=== PATIENT | female | born 2000 | race American Indian/Alaskan Native ===

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

== ENCOUNTER 2022-02-27 14:06 | Inpatient (IN) | payer MEDICAID ==
[2022-02-27] MEDS ORDERED: LACTATED RINGERS 1,000 ML ONE (17:19)
[2022-02-27] MEDS ORDERED: ONDANSETRON 4 MG/2 ML INJ ONE (17:24)
[2022-02-27] MEDS ORDERED: FAMOTIDINE 20 MG/2 ML INJ IV ONE ×2 (17:44→23:00)
[2022-02-27] MEDS ORDERED: LACTATED RINGERS 500 ML IV ONE (17:46)
[2022-02-27 18:17] LABS: Bilirubin,Urine NEG (Negative); Blood,Urine SM (Negative); Color,Urine Yellow (Yellow)
[2022-02-27 18:17] LABS: Hematocrit 38.8 % (30.3-42.9); Hemoglobin 12.4 gm/dl (10.1-14.3); Mean Corpuscular HGB Conc 32 % (30-34); Mean Corpuscular Volume 91 fl (79-97); Platelet Count 229 K/mm3 (140-440); Red Blood Count 4.26 M/mm3 (3.65-5.03); Red Cell Distribution Width 13.9 % (13.2-15.2)
[2022-02-27 18:19] LABS: Mucus,Urine FEW /HPF
[2022-02-27 18:40] LABS: Alanine Aminotransferase 121 units/L (7-56); Albumin 3.5 g/dL (3.9-5); Blood Urea Nitrogen 8 mg/dL (7-17); Calcium 9.9 mg/dL (8.4-10.2); Hemolysis Index 29
[2022-02-27 18:56] LABS: BUN/Creatinine Ratio 13
[2022-02-27] MEDS ORDERED: ACETAMINOPHEN 325 MG TAB PO PRN (19:54)
[2022-02-27] MEDS ORDERED: DOCUSATE SODIUM 100 MG CAP PO PRN (19:54)
[2022-02-27] MEDS ORDERED: LACTATED RINGERS 1,000 ML IV SCH (20:00)
[2022-02-27] MEDS ORDERED: DEXTROSE 50% IN WATER (25GM) 50 ML SYRINGE IV PRN (20:03)
[2022-02-28] MEDS: INSULIN REGULAR, HUMAN 100 UNITS/1 ML SUB-Q PRN ×4 (00:06→14:26)
[2022-02-28] MEDS: METOCLOPRAMIDE 10 MG/2 ML INJ IV SCH ×2 (04:13→21:17)
[2022-02-28] MEDS: ONDANSETRON 4 MG/2 ML INJ IV PRN (06:03)
--- NOTE | 2022-02-28 08:51 | History and Physical Report ---
History of Present Illness Date of examination: 02/28/22 Date of admission: 02/27/22 19:55 Chief complaint: nausea and vomiting History of present illness: Pt is a 22 year old -Cym[place] female MAXX 04/26/22 at 31w6d who presents with complaint of nausea and vomiting daily for the past two weeks. She presented to triage for the same complaint last week. She has tried taking Tums but she has not noticed any improvement since taking them. She has had care at [facility] since transfer into care at 11 wks with comanagement by [facility] complicated by pregesetational diabetes on Metformin 500 mg BID, Asthma, Polyhydramnios, Obesity, Chlamydia treated with negative test of cure. She is GBS positive. 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: chlamydia (treated with negative test of cure), herpes (type 1) Family/Genetic History: none Social history: no significant social history - Obstetrical History Expected Date of Delivery: 04/26/22 Actual Gestation: 31 Week(s) 6 Day(s) : 2 Para: 0 Hx # Term Pregnancies: 0 Number of Pregnancies: 0 Spontaneous Abortions: 1 Induced : 0 Number of Living Children: 0 Medications and Allergies Allergies Allergy/AdvReac Type Severity Reaction Status Date / Time No Known Allergies Allergy Unverified 12/08/19 10:14 Home Medications Medication Instructions Recorded Confirmed Last Taken Type Ibuprofen [Motrin] 600 mg PO Q8H PRN #20 tablet 12/08/19 Unknown Rx Active Meds: Active Medications Acetaminophen (Acetaminophen 325 Mg Tab) 650 mg PO Q4H PRN PRN Reason: Pain MILD(1-3)/Fever >100.5/MALIK Last Admin: 02/27/22 23:52 Dose: 650 mg Dextrose (Dextrose 50% In Water (25gm) 50 Ml Syringe) 50 ml IV Q30MIN PRN; Protocol PRN Reason: Hypoglycemia Docusate Sodium (Docusate Sodium 100 Mg Cap) 100 mg PO Q12H PRN PRN Reason: Constipation Lactated Ringer's (Lactated Ringers) 1,000 mls @ 125 mls/hr IV DIRECT VELVET Insulin Human Regular (Insulin Regular, Human 100 Units/1 Ml) 0 units SUB-Q Q6H PRN; Protocol PRN Reason: Hyperglycemia Last Admin: 02/28/22 06:19 Dose: 2 units Metoclopramide HCl (Metoclopramide 10 Mg/2 Ml Inj) 10 mg IV Q6H [facility] Last Admin: 02/28/22 04:13 Dose: Not Given Multivitamins/Iron/Calcium ( Kcm98-[id number] Fumarate-Folic Acid Vit Tab) 1 each PO QDAY [facility] Ondansetron HCl (Ondansetron 4 Mg/2 Ml Inj) 4 mg IV Q6H PRN PRN Reason: N/V unrelieved by Prashanth Last Admin: 02/28/22 06:03 Dose: 4 mg Review of Systems All systems: negative - Vital Signs Vital signs: Vital Signs Temp Resp Pulse Ox 98.3 F 16 100 02/27/22 16:34 02/27/22 16:34 02/27/22 16:34 Temp Pulse Resp BP Pulse Ox 97.5 F L 91 H 16 128/60 0 L 02/28/22 04:51 02/28/22 08:48 02/28/22 04:51 02/28/22 08:48 02/28/22 08:43 - Physical Exam Abdomen: Positive: soft (obese, gravid ) Uterus: Positive: enlarged (gravid ) Extremities: Positive: edema (trace) - Obstetrical FHR: auscultation normal Uterine Contraction Monitor Mode: External Uterine Contraction Pattern: Absent Uterine Tone Measurement Phase: Resting Results Result Diagrams: 02/27/22 Unknown 02/27/22 Unknown Abnormal lab results 02/27/22 02/27/22 02/28/22 Range/Units 23:50 Unknown 06:13 Sodium 133 L (137-145) mmol/L Potassium 5.1 H (3.6-5.0) mmol/L Carbon Dioxide 13 L (22-30) mmol/L Glucose 193 H (65-100) mg/dL POC Glucose 214 H 200 H (70-105) mg/dL AST 100 H (5-40) units/L ALT 121 H (7-56) units/L Albumin 3.5 L (3.9-5) g/dL All other labs normal. Assessment and Plan A: IUP at 31w6d Nausea and Vomiting Pregesetational diabetes on Metformin 500 mg BID Asthma Polyhydramnios Obesity Chlamydia treated with negative test of cure GBS positive P: Admit to antepartum service for observation IV hydration IV antiemetics Glucose monitoring Advance diet as tolerated
[2022-02-28] MEDS ORDERED: PRENATAL VIT27-FE FUMARATE-FOLIC ACID VIT TAB PO SCH ×2 (10:00)
--- NOTE | 2022-02-28 22:10 | Event Note ---
Date: 02/28/22 Pt nausea improved with IV Zofran. No emesis of Pt's blood sugar is elevated, but pt reports that she drank juice before accuchek. Continue to advance diet, restart Metformin, sliding scale PRN. BPP ordered but not yet performed. Pt desires discharge early tomorrow morning if possible.
[2022-03-01] MEDS: INSULIN REGULAR, HUMAN 100 UNITS/1 ML SUB-Q PRN ×4 (00:33→17:42)
--- NOTE | 2022-03-01 01:46 | Ultrasound Report ---
US OB BPP wo non-stress INDICATION / CLINICAL INFORMATION: well being COMPARISON: None available. TECHNIQUE: Using a transcutaneous probe, multiple grayscale, color Doppler, and spectral Doppler imag es of the fetus and uterus are captured in store for purposes of biophysical profile. FINDINGS: Clinical estimate gestational age based on LMP of 07/20/2021 is 31 weeks 6 days. heart rate is 157 bpm. Largest pocket of amniotic fluid measures 7.3 cm. BREATHING MOVEMENT = 2 GROSS BODY MOVEMENT = 2 TONE = 2 QUALITATIVE AMNIOTIC FLUID VOLUME = 2 TOTAL BIOPHYSICAL SCORE = 8/8 IMPRESSION: 1. Normal biophysical profile score of 8/8. Signer Name: Kalyan Martinez II, MD Signed: 03/01/2022 1:41 AM Workstation Name: [id number]
[2022-03-01] MEDS: METOCLOPRAMIDE 10 MG/2 ML INJ IV SCH ×3 (02:05→20:49)
--- NOTE | 2022-03-01 07:30 | Progress Note ---
Assessment and Plan A: IUP at 32w0d Nausea and Vomiting- no emesis overnight Pregesetational diabetes on Metformin 500 mg BID Asthma Polyhydramnios Obesity Chlamydia treated with negative test of cure GBS positive P: Admit to antepartum service for observation IV hydration IV antiemetics Glucose monitoring Subjective - Subjective Date of service: 03/01/22 Principal diagnosis: IUP at 32w0d, Pregestational DM, Obesity Interval history: Overnight BPP 03/20 last night. She did not receive evening Metformin dose. Glucose elevated this morning. Patient reports: new complaints, movement normal, no loss of fluid, no vaginal bleeding, no contractions Objective - Vital Signs Vital Signs: Vital Signs - 12hr 02/28/22 02/28/22 02/28/22 19:33 19:37 19:38 Temperature Pulse Rate 116 H 94 H Blood Pressure O2 Sat by Pulse 93 96 Oximetry O2 Sat by Pulse 96 Oximetry [ Bilateral Throughout] 02/28/22 02/28/22 02/28/22 19:43 19:44 19:45 Temperature 97.7 F Pulse Rate 92 H 98 H Blood Pressure 123/67 O2 Sat by Pulse 96 90 Oximetry O2 Sat by Pulse Oximetry [ Bilateral Throughout] 02/28/22 02/28/22 02/28/22 19:48 19:53 19:58 Temperature Pulse Rate 102 H 99 H 90 Blood Pressure O2 Sat by Pulse 96 100 94 Oximetry O2 Sat by Pulse Oximetry [ Bilateral Throughout] 02/28/22 02/28/22 02/28/22 20:03 20:06 20:08 Temperature Pulse Rate 99 H 101 H 99 H Blood Pressure O2 Sat by Pulse 96 94 96 Oximetry O2 Sat by Pulse Oximetry [ Bilateral Throughout] 02/28/22 02/28/22 02/28/22 20:13 20:14 20:18 Temperature Pulse Rate 98 H 100 H 93 H Blood Pressure O2 Sat by Pulse 96 94 97 Oximetry O2 Sat by Pulse Oximetry [ Bilateral Throughout] 02/28/22 02/28/22 02/28/22 20:23 20:28 20:33 Temperature Pulse Rate 98 H 102 H 107 H Blood Pressure O2 Sat by Pulse 97 98 98 Oximetry O2 Sat by Pulse Oximetry [ Bilateral Throughout] 02/28/22 02/28/22 02/28/22 20:38 20:43 20:45 Temperature Pulse Rate 103 H 96 H 93 H Blood Pressure O2 Sat by Pulse 99 98 92 Oximetry O2 Sat by Pulse Oximetry [ Bilateral Throughout] 02/28/22 02/28/22 03/01/22 20:48 20:53 00:35 Temperature 98.2 F Pulse Rate 93 H 96 H Blood Pressure O2 Sat by Pulse 96 99 Oximetry O2 Sat by Pulse Oximetry [ Bilateral Throughout] 03/01/22 03/01/22 03/01/22 00:54 00:59 01:04 Temperature Pulse Rate 93 H 88 104 H Blood Pressure O2 Sat by Pulse 99 99 99 Oximetry O2 Sat by Pulse Oximetry [ Bilateral Throughout] 03/01/22 03/01/22 03/01/22 01:09 01:14 01:19 Temperature Pulse Rate 101 H 102 H 95 H Blood Pressure O2 Sat by Pulse 99 99 99 Oximetry O2 Sat by Pulse Oximetry [ Bilateral Throughout] 03/01/22 03/01/22 03/01/22 01:24 01:29 01:37 Temperature Pulse Rate 109 H 108 H 117 H Blood Pressure O2 Sat by Pulse 99 99 95 Oximetry O2 Sat by Pulse Oximetry [ Bilateral Throughout] 03/01/22 03/01/22 03/01/22 01:42 01:47 01:52 Temperature Pulse Rate 99 H 102 H 100 H Blood Pressure O2 Sat by Pulse 98 98 98 Oximetry O2 Sat by Pulse Oximetry [ Bilateral Throughout] 03/01/22 03/01/22 03/01/22 01:57 02:02 02:07 Temperature Pulse Rate 96 H 99 H 106 H Blood Pressure O2 Sat by Pulse 98 98 99 Oximetry O2 Sat by Pulse Oximetry [ Bilateral Throughout] 03/01/22 03/01/22 03/01/22 02:12 02:20 02:25 Temperature Pulse Rate 117 H 107 H 97 H Blood Pressure O2 Sat by Pulse 98 98 98 Oximetry O2 Sat by Pulse Oximetry [ Bilateral Throughout] 03/01/22 03/01/22 03/01/22 02:30 02:35 02:40 Temperature Pulse Rate 100 H 97 H 98 H Blood Pressure O2 Sat by Pulse 98 98 98 Oximetry O2 Sat by Pulse Oximetry [ Bilateral Throughout] 03/01/22 03/01/22 03/01/22 02:45 02:50 02:55 Temperature Pulse Rate 101 H 106 H 96 H Blood Pressure O2 Sat by Pulse 98 98 99 Oximetry O2 Sat by Pulse Oximetry [ Bilateral Throughout] 03/01/22 03/01/22 03/01/22 03:00 03:05 03:10 Temperature Pulse Rate 94 H 99 H 103 H Blood Pressure O2 Sat by Pulse 99 99 99 Oximetry O2 Sat by Pulse Oximetry [ Bilateral Throughout] 03/01/22 03/01/22 03/01/22 03:15 03:20 03:25 Temperature Pulse Rate 97 H 97 H 95 H Blood Pressure O2 Sat by Pulse 99 99 99 Oximetry O2 Sat by Pulse Oximetry [ Bilateral Throughout] 03/01/22 03/01/22 03/01/22 03:30 03:35 03:40 Temperature Pulse Rate 98 H 105 H 108 H Blood Pressure O2 Sat by Pulse 99 99 99 Oximetry O2 Sat by Pulse Oximetry [ Bilateral Throughout] 03/01/22 03/01/22 03/01/22 03:45 03:50 03:55 Temperature Pulse Rate 107 H 99 H 107 H Blood Pressure O2 Sat by Pulse 98 99 99 Oximetry O2 Sat by Pulse Oximetry [ Bilateral Throughout] 03/01/22 03/01/22 03/01/22 04:00 04:05 04:10 Temperature Pulse Rate 102 H 102 H 100 H Blood Pressure O2 Sat by Pulse 99 98 98 Oximetry O2 Sat by Pulse Oximetry [ Bilateral Throughout] 03/01/22 03/01/22 03/01/22 04:15 04:20 04:25 Temperature Pulse Rate 92 H 89 91 H Blood Pressure O2 Sat by Pulse 98 98 98 Oximetry O2 Sat by Pulse Oximetry [ Bilateral Throughout] 03/01/22 03/01/22 03/01/22 04:30 04:35 04:40 Temperature Pulse Rate 93 H 93 H 95 H Blood Pressure O2 Sat by Pulse 98 98 98 Oximetry O2 Sat by Pulse Oximetry [ Bilateral Throughout] 03/01/22 03/01/22 03/01/22 04:45 04:50 04:55 Temperature Pulse Rate 94 H 92 H 90 Blood Pressure O2 Sat by Pulse 98 97 98 Oximetry O2 Sat by Pulse Oximetry [ Bilateral Throughout] 03/01/22 03/01/22 03/01/22 05:00 05:05 05:10 Temperature Pulse Rate 100 H 91 H 100 H Blood Pressure O2 Sat by Pulse 97 98 97 Oximetry O2 Sat by Pulse Oximetry [ Bilateral Throughout] 0703/01/22 03/01/22 05:15 05:20 05:25 Temperature Pulse Rate 95 H 98 H 105 H Blood Pressure O2 Sat by Pulse 96 98 98 Oximetry O2 Sat by Pulse Oximetry [ Bilateral Throughout] 03/01/22 03/01/22 03/01/22 05:33 05:38 05:43 Temperature Pulse Rate 117 H 111 H 102 H Blood Pressure O2 Sat by Pulse 99 97 98 Oximetry O2 Sat by Pulse Oximetry [ Bilateral Throughout] 03/01/22 03/01/22 03/01/22 05:48 05:53 05:58 Temperature Pulse Rate 99 H 99 H 102 H Blood Pressure O2 Sat by Pulse 98 98 98 Oximetry O2 Sat by Pulse Oximetry [ Bilateral Throughout] 03/01/22 03/01/22 03/01/22 06:03 06:08 06:13 Temperature Pulse Rate 100 H 118 H 112 H Blood Pressure 107/76 O2 Sat by Pulse 98 98 98 Oximetry O2 Sat by Pulse Oximetry [ Bilateral Throughout] 03/01/22 03/01/22 03/01/22 06:18 06:23 06:28 Temperature Pulse Rate 99 H 113 H 95 H Blood Pressure O2 Sat by Pulse 100 99 98 Oximetry O2 Sat by Pulse Oximetry [ Bilateral Throughout] 03/01/22 03/01/22 03/01/22 06:33 06:44 06:49 Temperature Pulse Rate 95 H 110 H 87 Blood Pressure O2 Sat by Pulse 97 100 99 Oximetry O2 Sat by Pulse Oximetry [ Bilateral Throughout] 03/01/22 03/01/22 03/01/22 06:54 06:59 07:04 Temperature Pulse Rate 111 H 96 H 89 Blood Pressure O2 Sat by Pulse 100 100 99 Oximetry O2 Sat by Pulse Oximetry [ Bilateral Throughout] 03/01/22 03/01/22 03/01/22 07:09 07:14 07:19 Temperature Pulse Rate 90 93 H 103 H Blood Pressure O2 Sat by Pulse 98 99 100 Oximetry O2 Sat by Pulse Oximetry [ Bilateral Throughout] 03/01/22 07:24 Temperature Pulse Rate 95 H Blood Pressure O2 Sat by Pulse 99 Oximetry O2 Sat by Pulse Oximetry [ Bilateral Throughout] - Exam Breasts: deferred Abdomen: Present: soft (gravid, obese) Uterus: Present: normal (gravid ) FHR: auscultation normal Uterine Contraction Monitor Mode: External Uterine Tone Measurement Phase: Resting Extremities: normal - Labs Labs: Abnormal Labs 02/27/22 02/27/22 02/28/22 23:50 Unknown 06:13 Sodium 133 L Potassium 5.1 H Carbon Dioxide 13 L Glucose 193 H POC Glucose 214 H 200 H AST 100 H ALT 121 H Albumin 3.5 L 02/28/22 02/28/22 02/28/22 13:34 16:20 18:19 Sodium Potassium Carbon Dioxide Glucose POC Glucose 224 H 163 H 161 H AST ALT Albumin 02/28/22 03/01/22 23:49 06:10 Sodium Potassium Carbon Dioxide Glucose POC Glucose 168 H 193 H AST ALT Albumin Laboratory Results - last 24 hr 02/28/22 02/28/22 02/28/22 13:34 16:20 18:19 POC Glucose 224 H 163 H 161 H 02/28/22 03/01/22 23:49 06:10 POC Glucose 168 H 193 H
[2022-03-01] MEDS: metFORMIN 500 MG TAB PO SCH ×2 (09:20→17:46)
[2022-03-01] MEDS: ONDANSETRON 4 MG/2 ML INJ IV PRN (10:44)
[2022-03-02] MEDS: METOCLOPRAMIDE 10 MG/2 ML INJ IV SCH (04:05)
[2022-03-02] MEDS: ONDANSETRON 4 MG/2 ML INJ IV PRN (06:27)
[2022-03-02 11:21] VITALS: BP 128/77
[2022-03-02] MEDS: metFORMIN 500 MG TAB PO SCH (11:59)
== END 2022-03-02 12:50 | disposition home or self-care (01) | DRG 781 ==
LOC: APU 14:06 → TRG 14:06 → OBSVTOIN 19:55 → LD 19:55
PROVIDERS: ADMIT Obstetrics & Gynecology; ATTEND Obstetrics & Gynecology
DX: O24.113 Pre-existing type 2 diabetes mellitus, in pregnancy, third trimester (principal); O99.820 Streptococcus B carrier state complicating pregnancy; O99.513 Diseases of the respiratory system complicating pregnancy, third trimester; O40.3XX0 Polyhydramnios, third trimester, not applicable or unspecified; O99.213 Obesity complicating pregnancy, third trimester; Z3A.31 31 weeks gestation of pregnancy
CPT/HCPCS: 36415; 59025; 76819; 80053; 81001; 82150; 82962; 83690; 85027; G0378; J3490; Q9967; J1815; J2405; J2765

== ENCOUNTER 2022-03-04 15:27 | Outpatient (CLI) | payer MEDICAID ==
[2022-03-04] MEDS ORDERED: LACTATED RINGERS 500 ML IV ONE (18:15)
[2022-03-04 18:43] VITALS: BP 136/96
== END 2022-03-04 19:32 | disposition home or self-care (01) ==
LOC: TRG 15:27 → APU 15:27 → TRG 19:32
PROVIDERS: ATTEND Obstetrics & Gynecology
DX: O21.2 Late vomiting of pregnancy (principal); O99.613 Diseases of the digestive system complicating pregnancy, third trimester; K59.00 Constipation, unspecified; O99.513 Diseases of the respiratory system complicating pregnancy, third trimester; J45.909 Unspecified asthma, uncomplicated; O24.419 Gestational diabetes mellitus in pregnancy, unspecified control; Z3A.32 32 weeks gestation of pregnancy
CPT/HCPCS: 59025

== ENCOUNTER 2022-03-12 16:52 | Inpatient (IN) | payer MEDICAID ==
[2022-03-12] MEDS ORDERED: LACTATED RINGERS 500 ML IV ONE (17:39)
[2022-03-12 18:27] LABS: Hematocrit 36.1 % (30.3-42.9); Hemoglobin 11.6 gm/dl (10.1-14.3); Mean Corpuscular HGB Conc 32 % (30-34); Mean Corpuscular Volume 90 fl (79-97); Platelet Count 122 K/mm3 (140-440); Red Blood Count 4.01 M/mm3 (3.65-5.03); Red Cell Distribution Width 13.9 % (13.2-15.2)
[2022-03-12 18:36] LABS: Mucus,Urine FEW /HPF
[2022-03-12 18:46] LABS: Alanine Aminotransferase 106 units/L (7-56); Uric Acid 7.3 mg/dL (3.5-7.6)
[2022-03-12 19:11] LABS: Bilirubin,Urine Negative (Negative); Blood,Urine Trace (Negative); Color,Urine Yellow (Yellow); Urobilinogen,Urine < 2.0 mg/dL (<2.0)
[2022-03-13] MEDS ORDERED: BUTORPHANOL 2 MG/1 ML INJ IV PRN ×2 (00:22)
[2022-03-13] MEDS ORDERED: fentaNYL 100 MCG/2 ML INJ IV PRN (00:22)
[2022-03-13] MEDS ORDERED: LACTATED RINGERS 1,000 ML IV SCH (00:30)
[2022-03-13] MEDS: BETAMET ACET/BETAMET NA PH 6 MG/ML INJ 5 ML MDV IM SCH (00:40)
[2022-03-13 00:58] LABS: Hematocrit 34.7 % (30.3-42.9); Hemoglobin 11.3 gm/dl (10.1-14.3); Mean Corpuscular HGB Conc 33 % (30-34); Mean Corpuscular Volume 89 fl (79-97); Platelet Count 119 K/mm3 (140-440); Red Blood Count 3.89 M/mm3 (3.65-5.03); Red Cell Distribution Width 14.1 % (13.2-15.2)
[2022-03-13] MEDS: ACETAMINOPHEN 325 MG TAB PO PRN (02:36)
[2022-03-13 05:14] LABS: Hematocrit 34.8 % (30.3-42.9); Hemoglobin 10.8 gm/dl (10.1-14.3); Mean Corpuscular HGB Conc 31 % (30-34); Mean Corpuscular Volume 90 fl (79-97); Platelet Count 111 K/mm3 (140-440); Red Blood Count 3.85 M/mm3 (3.65-5.03); Red Cell Distribution Width 13.8 % (13.2-15.2)
[2022-03-13 05:32] LABS: Alanine Aminotransferase 86 units/L (7-56); Albumin 2.6 g/dL (3.9-5); BUN/Creatinine Ratio 18; Blood Urea Nitrogen 16 mg/dL (7-17); Calcium 9.1 mg/dL (8.4-10.2); Hemolysis Index 22
[2022-03-13] MEDS ORDERED: DEXTROSE 50% IN WATER (25GM) 50 ML SYRINGE IV PRN (10:00)
--- NOTE | 2022-03-13 10:56 | Vascular Lab Report ---
DUPLEX DOPPLER LOWER EXTREMITY VEINS, RIGHT INDICATION / CLINICAL INFORMATION: right lower extremity edema. TECHNIQUE: Duplex doppler imaging was performed through the veins of the right lower extremity using venous comp ression and other maneuvers. COMPARISON: None available. FINDINGS: RIGHT COMMON FEMORAL VEIN: Negative. RIGHT FEMORAL VEIN: Negative. RIGHT POPLITEAL VEIN: Negative. RIGHT CALF VEINS: Negative. ADDITIONAL FINDINGS: None. IMPRESSION: 1. No sonographic evidence for DVT in the right lower extremity. Signer Name: Christian Ramirez MD Signed: 03/13/2022 10:51 AM Workstation Name: [id number]
--- NOTE | 2022-03-13 13:09 | Ultrasound Report ---
ULTRASOUND BIOPHYSICAL PROFILE INDICATION / CLINICAL INFORMATION: decreased movement. COMPARISON: 02/28/2022 FINDINGS: Single live intrauterine . MEASUREMENTS: - Biparietal Diameter = 8.7 cm = 35 weeks 0 days - Head Circumference = 30.6 cm = 34 weeks 1 day - Abdominal Circumference = 34.8 cm = 38 weeks 5 days - Femur Length = 6.6 cm = 33 weeks 4 days - Estimated Weight (in grams, if calculated): 2981 -Estimated ultrasound gestational age: 34 weeks 2 days -Clinical gestational age: 33 weeks 5 days. BREATHING MOVEMENT = 2 GROSS BODY MOVEMENT = 2 TONE = 2 QUALITATIVE AMNIOTIC FLUID VOLUME = 2 TOTAL BIOPHYSICAL SCORE = 8/8 AMNIOTIC FLUID INDEX (cm) = 37.5 PRESENTATION: Cephalic. HEART RATE (beats per minute): 150-162 Additional findings: Anterior placenta is free of the os. No significant abnormality. IMPRESSION: 1. Single live intrauterine with ultrasound age of 34 weeks and 2 days. 2. biophysical profile = 8/8 3. Increased amniotic fluid volume with amniotic fluid index measuring 37.5 cm. Signer Name: Tien Berger MD Signed: 03/13/2022 1:05 PM Workstation Name: [id number]
--- NOTE | 2022-03-13 14:32 | History and Physical Report ---
History of Present Illness Date of examination: 03/13/22 Date of admission: 03/12/22 22:53 Chief complaint: my legs are swollen History of present illness: Pt is a 22 year old -[place] female who initially presented secondary to leg swelling, right greater than left. She was noted to have two BPs with systolics greater than 140 since admission. She collected a 24 hour urine at home, and returned it today. She reports decreased movement and irregular contractions, but denies vaginal bleeding or leakage of fluid. She has had care at [facility] with comanagement by [facility] since transfer into care at 11 wks complicated by pregestational diabetes previously on Metformin 500 mg BID, asthma, polyhydramnios, chlamydia treated with negative test of cure, obesity, and GBS positive status. She received one dose of betamethasone for lung maturity since admission. PIH panel was ordered in the office on 03/07/22: H/H 12.3/38.1, Plt 180,000;Glucose 287; AST/ALT 72/145. The patient was called at that time, but call unanswered, and unable to leave a voicemail. Past History Past Medical History: asthma, diabetes Past Surgical History: D&C [employer] History: chlamydia (treated with negative test of cure ), other (h/o ovarian cyst) Family/Genetic History: none Social history: no significant social history - Obstetrical History Expected Date of Delivery: 04/26/22 Actual Gestation: 33 Week(s) 5 Day(s) : 2 Para: 0 Hx # Term Pregnancies: 0 Number of Pregnancies: 0 Spontaneous Abortions: 1 Induced : 0 Number of Living Children: 0 Medications and Allergies Allergies Allergy/AdvReac Type Severity Reaction Status Date / Time No Known Allergies Allergy Unverified 03/04/22 18:02 Home Medications Medication Instructions Recorded Confirmed Last Taken Type Ibuprofen [Motrin] 600 mg PO Q8H PRN #20 tablet 12/08/19 Unknown Rx Metoclopramide [Reglan] 10 mg PO TID PRN #90 tab 03/01/22 Unknown Rx Ondansetron [Zofran ODT TAB] 8 mg PO Q12HR PRN #30 tab.rapdis 03/01/22 Unknown Rx Lactulose [Cephulac] 20 gm PO BID PRN #473 ml 03/04/22 Unknown Rx Active Meds: Active Medications Acetaminophen (Acetaminophen 325 Mg Tab) 650 mg PO Q4H PRN PRN Reason: Pain, Mild (1-3) Last Admin: 03/13/22 02:36 Dose: 650 mg Betamethasone Acet/Betameth SodPhos (Betamet Acet/Betamet Na Ph 6 Mg/Ml Inj 5 Ml Mdv) 12 mg IM Q24H [facility] Stop: 03/14/22 00:16 Last Admin: 03/13/22 00:40 Dose: 12 mg Butorphanol Tartrate (Butorphanol 2 Mg/1 Ml Inj) 1 mg IV Q2H PRN PRN Reason: Pain, Moderate(4-6) LABOR PAIN Butorphanol Tartrate (Butorphanol 2 Mg/1 Ml Inj) 2 mg IV Q2H PRN PRN Reason: Pain , Severe (7-10) Dextrose (Dextrose 50% In Water (25gm) 50 Ml Syringe) 50 ml IV Q30MIN PRN; Protocol PRN Reason: Hypoglycemia Fentanyl (Fentanyl 100 Mcg/2 Ml Inj) 100 mcg IV Q2H PRN PRN Reason: Pain,Severe (7-10) LABOR PAIN Lactated Ringer's (Lactated Ringers) 1,000 mls @ 125 mls/hr IV DIRECT VELVET Insulin Human NPH (Insulin Nph, Human 100 Unit/1 Ml) 39 unit SUB-Q QDDIAB [facility] Insulin Human NPH (Insulin Nph, Human 100 Unit/1 Ml) 14 unit SUB-Q QPMDIAB [facility] Insulin Human Regular (Insulin Regular, Human 100 Units/1 Ml) 19 units SUB-Q QDDIAB [facility] Insulin Human Regular (Insulin Regular, Human 100 Units/1 Ml) 14 units SUB-Q QPMDIAB [facility] Insulin Human Regular (Insulin Regular, Human 100 Units/1 Ml) 0 units SUB-Q Q6H PRN; Protocol PRN Reason: Hyperglycemia Review of Systems All systems: negative - Vital Signs Vital signs: Vital Signs Pulse Pulse Ox 107 H 98 03/12/22 17:21 03/12/22 17:21 Temp Pulse Resp BP Pulse Ox 97.6 F 76 18 116/66 61 L 03/13/22 07:50 03/13/22 14:24 03/13/22 07:50 03/13/22 14:24 03/13/22 14:21 - Physical Exam Breasts: Positive: deferred Abdomen: Positive: soft (gravid (S>D)) Uterus: Positive: enlarged Extremities: Positive: edema. Negative: tenderness - Obstetrical FHR: auscultation normal Uterine Contraction Monitor Mode: External Uterine Contraction Pattern: Irregular Uterine Tone Measurement Phase: Resting Uterine Contraction Intensity: Mild Results Result Diagrams: 03/13/22 04:23 03/13/22 04:23 Abnormal lab results 03/12/22 03/12/22 03/12/22 Range/Units 17:50 17:50 17:50 WBC 3.6 L (4.5-11.0) K/mm3 Plt Count 122 L (140-440) K/mm3 Sodium (137-145) mmol/L Potassium (3.6-5.0) mmol/L Chloride (98-107) mmol/L Carbon Dioxide (22-30) mmol/L Glucose (65-100) mg/dL AST 73 H (5-40) units/L ALT 106 H (7-56) units/L Lactate Dehydrogenase 201 H (91-180) units/L Total Protein (6.3-8.2) g/dL Albumin (3.9-5) g/dL Urine WBC (Auto) 7.0 H (0.0-6.0) /HPF SARS-CoV-2 (PCR) (Negative) 03/13/22 03/13/22 03/13/22 Range/Units 00:00 04:23 04:23 WBC 3.7 L 4.1 L (4.5-11.0) K/mm3 Plt Count 119 L 111 L (140-440) K/mm3 Sodium 129 L (137-145) mmol/L Potassium 5.1 H (3.6-5.0) mmol/L Chloride 93.3 L (98-107) mmol/L Carbon Dioxide 14 L (22-30) mmol/L Glucose 373 H (65-100) mg/dL AST 59 H (5-40) units/L ALT 86 H (7-56) units/L Lactate Dehydrogenase (91-180) units/L Total Protein 5.9 L (6.3-8.2) g/dL Albumin 2.6 L (3.9-5) g/dL Urine WBC (Auto) (0.0-6.0) /HPF SARS-CoV-2 (PCR) (Negative) 03/13/22 Range/Units 13:00 WBC (4.5-11.0) K/mm3 Plt Count (140-440) K/mm3 Sodium (137-145) mmol/L Potassium (3.6-5.0) mmol/L Chloride (98-107) mmol/L Carbon Dioxide (22-30) mmol/L Glucose (65-100) mg/dL AST (5-40) units/L ALT (7-56) units/L Lactate Dehydrogenase (91-180) units/L Total Protein (6.3-8.2) g/dL Albumin (3.9-5) g/dL Urine WBC (Auto) (0.0-6.0) /HPF SARS-CoV-2 (PCR) Positive A (Negative) All other labs normal. Assessment and Plan A: IUP at 33w2d s/p one dose of betamethasone since arrival Borderline BPs Thrombocytopenia Multiple Electrolyte Abnormalities Decreased Movement Lower Extremity Edema; right greater then left Pregestational Diabetes, poorly controlled on Metformin Polyhydramnios Obesity Asthma Chlamydia treated with negative test of cure GBS Positive P: Admit to antepartum service BPP, JOSEPH Complete betamethasone series Right Lower extremity doppler study Initiate scheduled insulin. Discontinue Metformin MFM consult
[2022-03-13] MEDS: INSULIN REGULAR, HUMAN 100 UNITS/1 ML SUB-Q SCH ×2 (15:53→20:58)
[2022-03-14] MEDS: BETAMET ACET/BETAMET NA PH 6 MG/ML INJ 5 ML MDV IM SCH (00:40)
[2022-03-14] MEDS: INSULIN REGULAR, HUMAN 100 UNITS/1 ML SUB-Q PRN ×4 (06:50→20:05)
[2022-03-14] MEDS: INSULIN NPH, HUMAN 100 UNIT/1 ML SUB-Q SCH ×3 (08:22→23:04)
[2022-03-14] MEDS: INSULIN REGULAR, HUMAN 100 UNITS/1 ML SUB-Q SCH ×2 (08:23→22:58)
--- NOTE | 2022-03-14 08:49 | Progress Note ---
Assessment and Plan A: IUP at 33w6d s/p two doses of betamethasone since arrival Borderline BPs Thrombocytopenia Multiple Electrolyte Abnormalities Lower Extremity Edema; right greater then left; doppler study negative Pregestational Diabetes, poorly controlled on Metformin; initiated on scheduled insulin on 03/13/22 Polyhydramnios Obesity Asthma Chlamydia treated with negative test of cure GBS Positive P: Follow up MFM recommendations Continue glucose control CBC, CMP this morning Subjective - Subjective Date of service: 03/14/22 Principal diagnosis: IUP at 33w6d, Poorly controlled Diabetes, Thrombocytopenia, Elevated LFTs Interval history: Overnight, pt received her second dose of betamethasone. No other issues reported. Pt has declined to eat much of the hospital food. Patient reports: movement normal, no new complaints, no loss of fluid, no vaginal bleeding, no contractions Objective - Vital Signs Vital Signs: Vital Signs - 12hr 03/13/22 03/13/22 03/13/22 22:22 22:23 22:24 Pulse Rate 99 H 95 H 92 H Blood Pressure 124/70 O2 Sat by Pulse 87 100 Oximetry 03/13/22 03/13/22 03/13/22 22:28 22:33 22:38 Pulse Rate 93 H 99 H 95 H Blood Pressure O2 Sat by Pulse 100 100 100 Oximetry 03/13/22 03/13/22 03/13/22 22:43 22:48 22:53 Pulse Rate 89 88 94 H Blood Pressure O2 Sat by Pulse 100 100 100 Oximetry 03/13/22 03/13/22 03/13/22 22:58 23:03 23:08 Pulse Rate 89 93 H 94 H Blood Pressure O2 Sat by Pulse 99 99 99 Oximetry 03/13/22 03/13/22 03/13/22 23:13 23:18 23:23 Pulse Rate 101 H 110 H 114 H Blood Pressure O2 Sat by Pulse 100 100 100 Oximetry 03/13/22 03/13/22 03/13/22 23:28 23:33 23:38 Pulse Rate 97 H 95 H 97 H Blood Pressure O2 Sat by Pulse 99 99 100 Oximetry 03/13/22 03/13/22 03/13/22 23:43 23:48 23:53 Pulse Rate 84 93 H 89 Blood Pressure O2 Sat by Pulse 100 100 100 Oximetry 08/01/22 08/02/22 08/02/22 23:58 00:03 00:08 Pulse Rate 88 94 H 92 H Blood Pressure O2 Sat by Pulse 100 100 100 Oximetry 03/14/22 03/14/22 03/14/22 06:25 08:34 08:36 Pulse Rate 87 73 65 Blood Pressure 116/68 132/59 O2 Sat by Pulse 100 Oximetry 03/14/22 03/14/22 08:39 08:44 Pulse Rate 81 81 Blood Pressure O2 Sat by Pulse 100 100 Oximetry - Exam Breasts: deferred Abdomen: Present: soft (obese, gravid ) Uterus: Present: normal (enlarged (size greater than dates) ) FHR: auscultation normal Uterine Contraction Monitor Mode: External Uterine Contraction Pattern: Irregular Uterine Tone Measurement Phase: Resting Uterine Contraction Intensity: Mild Extremities: edema (SCDs in place ) - Labs Labs: Abnormal Labs 03/12/22 03/12/22 03/12/22 17:50 17:50 17:50 WBC 3.6 L Plt Count 122 L Sodium Potassium Chloride Carbon Dioxide Glucose POC Glucose AST 73 H ALT 106 H Lactate Dehydrogenase 201 H Total Protein Albumin Urine WBC (Auto) 7.0 H SARS-CoV-2 (PCR) 03/13/22 03/13/22 03/13/22 00:00 04:23 04:23 WBC 3.7 L 4.1 L Plt Count 119 L 111 L Sodium 129 L Potassium 5.1 H Chloride 93.3 L Carbon Dioxide 14 L Glucose 373 H POC Glucose AST 59 H ALT 86 H Lactate Dehydrogenase Total Protein 5.9 L Albumin 2.6 L Urine WBC (Auto) SARS-CoV-2 (PCR) 03/13/22 03/13/22 03/13/22 13:00 15:38 23:37 WBC Plt Count Sodium Potassium Chloride Carbon Dioxide Glucose POC Glucose 250 H 232 H AST ALT Lactate Dehydrogenase Total Protein Albumin Urine WBC (Auto) SARS-CoV-2 (PCR) Positive A 03/14/22 06:07 WBC Plt Count Sodium Potassium Chloride Carbon Dioxide Glucose POC Glucose 293 H AST ALT Lactate Dehydrogenase Total Protein Albumin Urine WBC (Auto) SARS-CoV-2 (PCR) Laboratory Results - last 24 hr 03/13/22 03/13/22 03/13/22 13:00 15:38 23:37 POC Glucose 250 H 232 H SARS-CoV-2 (PCR) Positive A 03/14/22 06:07 POC Glucose 293 H SARS-CoV-2 (PCR)
--- NOTE | 2022-03-14 12:15 | Progress Note ---
Assessment and Plan ROS: Resp: Pt denies chest pain Cardiovascular: Pt denies chest pain GI: Pt denies change in bowel habits : Pt denies difficulty urinating, kidney problems, painful urination. MSK: Pt denies joint pain Neuro: Pt denies dizziness, fainting, headache, pain, seizures. Endo: Denies thyroid problems. Reports diabetes Psych: Pt denies anxiety, depressed mood, mental or physical abuse, suicidal thoughts. 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 Denies vaginal bleeding, LOF, contractions/ cramping, abdominal pain, headaches, nausea/vomiting IMPRESSION: 1. SIUP@ 33.6 weeks 2. [facility] Acclerated growth profile with EFW 2981 gm @ 98% - s/p NIPT with primary OB: low risk, female 3. Type 2 DM, managed on split insulin therapy with sliding scale - log had been unavailable with [facility] - s/p BMZ BS levels have been exacerbated in addition pt has been ordering and consuming outside food - s/p ECHO at [facility] " Normal" with no follow up 4. Asthma, managed wit prn albuterol - clinically stable 5. Obesity. 6. During consult Stable Bp of 122/ 67 with NO TAX PROFESSIONAL features 7. Polyhydramnios with JOSEPH of 37.5 cm 8. Positive COVID 19 infection 9. Non compliant patient - pt has not since [facility] since 02/20/22 - consuming outside 2199 ADA diet 10. Thrombocytopenia , likely gestational - most recent PLT level of 111K - 03/07/22 PLT 180K 11. 03/13/22 Elevated LFT : AST/ALT 59/86 ( previous assessment 73/106 respectively ) -03/07/22 AST/ALT 72/145 - Protein 24 hr urine ....140mg/24 hr 12. Lower Extremity edema Negative Doppler study - denies calf pain RECOMMENDATIONS: 1. Pt to remain in patient with continuous monitoring 2. Enforce 2200 ADA diet 3. Perform repeat LFTs and CBC 4. In addition kindly obtain and document her HgbA1C 5. Weekly BPP and repeat growth profile in 2 weeks 6. Document negative AFP for ONTD risk 7. Monitor I&O 8. Continue her current insulin therapy however additional coverage with sliding scale The Sliding scale is: a. < 140: Hold Humalog Insulin b. 140-160: Humalog 4 Units c. 161-180: Humalog 6 Units d. 180-200: Humalog 10 Units e. 200-220: Humalog 12 Units f. 220-260: Humalog 14 Units g. >260: 16 Humalog Units 9. Increase frequency of BP surveillance 10. Adhere to 2200 lori ADA diet. 11.LDA for PreE risks reduction 12. Due to non compliance /poorly controlled DM / Polyhydramnios with no or maternal compromise timing of delivery 36 weeks Subjective - Subjective Date of service: 03/14/22 (Pt is a 22 year old -[place] female who initially presented secondary to leg edema , right greater than left. She was noted to have isolated ( two) BPs with systolics greater than 140 . Presently BP 122/67 with no TAX PROFESSIONAL features S/P recent 24 hour urine at home, and She has had care at [facility] with comanagement by [facility] however pt has been non compliant with [facility] appoitments she has not seen [facility] since 02/20/2022 pregestational diabetes previously on Metformin 500 mg BID, asthma, polyhydramnios, and obesity) Principal diagnosis: IUP at 33w6d, Poorly controlled Diabetes, Thrombocytopenia, Elevated LFTs Patient reports: movement normal, other, no new complaints, no loss of fluid, no vaginal bleeding, no contractions Objective - Vital Signs Vital Signs: Vital Signs - 12hr 03/14/22 03/14/22 03/14/22 06:25 07:35 08:34 Temperature 97.9 F Pulse Rate 87 73 Respiratory 20 Rate Blood Pressure 116/68 O2 Sat by Pulse 98 100 Oximetry O2 Sat by Pulse Oximetry [ Bilateral] 03/14/22 03/14/22 03/14/22 08:36 08:39 08:44 Temperature Pulse Rate 65 81 81 Respiratory Rate Blood Pressure 132/59 O2 Sat by Pulse 100 100 Oximetry O2 Sat by Pulse Oximetry [ Bilateral] 03/14/22 03/14/22 03/14/22 08:49 08:54 08:59 Temperature Pulse Rate 80 87 85 Respiratory Rate Blood Pressure O2 Sat by Pulse 100 100 100 Oximetry O2 Sat by Pulse Oximetry [ Bilateral] 03/14/22 03/14/22 03/14/22 09:04 09:09 09:14 Temperature Pulse Rate 86 95 H 96 H Respiratory Rate Blood Pressure O2 Sat by Pulse 100 100 100 Oximetry O2 Sat by Pulse Oximetry [ Bilateral] 03/14/22 03/14/22 03/14/22 09:19 09:24 11:40 Temperature Pulse Rate 75 82 Respiratory Rate Blood Pressure O2 Sat by Pulse 100 100 Oximetry O2 Sat by Pulse 98 Oximetry [ Bilateral] 03/14/22 12:05 Temperature Pulse Rate 90 Respiratory Rate Blood Pressure 122/67 O2 Sat by Pulse Oximetry O2 Sat by Pulse Oximetry [ Bilateral] - Exam Breasts: deferred Cardiovascular: Regular rate Lungs: Normal air movement Abdomen: Absent: tenderness, guarding Uterus: Absent: tenderness FHR: category 1 (for EGA ) Uterine Contraction Monitor Mode: External Uterine Contraction Pattern: Absent Uterine Tone Measurement Phase: Resting Extremities: edema (+ 1 edema ) - Labs Labs: Abnormal Labs 03/12/22 03/12/22 03/12/22 17:50 17:50 17:50 WBC 3.6 L Plt Count 122 L Sodium Potassium Chloride Carbon Dioxide Glucose POC Glucose AST 73 H ALT 106 H Lactate Dehydrogenase 201 H Total Protein Albumin Urine WBC (Auto) 7.0 H SARS-CoV-2 (PCR) 03/13/22 03/13/22 03/13/22 00:00 04:23 04:23 WBC 3.7 L 4.1 L Plt Count 119 L 111 L Sodium 129 L Potassium 5.1 H Chloride 93.3 L Carbon Dioxide 14 L Glucose 373 H POC Glucose AST 59 H ALT 86 H Lactate Dehydrogenase Total Protein 5.9 L Albumin 2.6 L Urine WBC (Auto) SARS-CoV-2 (PCR) 03/13/22 03/13/22 03/13/22 13:00 15:38 23:37 WBC Plt Count Sodium Potassium Chloride Carbon Dioxide Glucose POC Glucose 250 H 232 H AST ALT Lactate Dehydrogenase Total Protein Albumin Urine WBC (Auto) SARS-CoV-2 (PCR) Positive A 03/14/22 06:07 WBC Plt Count Sodium Potassium Chloride Carbon Dioxide Glucose POC Glucose 293 H AST ALT Lactate Dehydrogenase Total Protein Albumin Urine WBC (Auto) SARS-CoV-2 (PCR) Laboratory Results - last 24 hr 03/13/22 03/13/22 03/13/22 13:00 15:38 23:37 POC Glucose 250 H 232 H SARS-CoV-2 (PCR) Positive A 03/14/22 06:07 POC Glucose 293 H SARS-CoV-2 (PCR) - Results US- obstetric: other (reviewed report from 03/13/22 BPP of 03/20 JOSEPH 37.5 cm; EFW 2981 gm @ 98% ; VTX presentation )
[2022-03-14 18:47] LABS: Hematocrit 33.8 % (30.3-42.9); Hemoglobin 10.9 gm/dl (10.1-14.3); Mean Corpuscular HGB Conc 32 % (30-34); Mean Corpuscular Volume 90 fl (79-97); Platelet Count 141 K/mm3 (140-440); Red Blood Count 3.78 M/mm3 (3.65-5.03); Red Cell Distribution Width 14.3 % (13.2-15.2)
[2022-03-14 18:50] LABS: Alanine Aminotransferase 65 units/L (7-56); Albumin 2.4 g/dL (3.9-5); BUN/Creatinine Ratio 16; Blood Urea Nitrogen 16 mg/dL (7-17); Calcium 8.9 mg/dL (8.4-10.2); Hemolysis Index 1
[2022-03-15] MEDS: INSULIN REGULAR, HUMAN 100 UNITS/1 ML SUB-Q PRN ×3 (01:22→12:26)
[2022-03-15] MEDS: INSULIN REGULAR, HUMAN 100 UNITS/1 ML SUB-Q SCH (09:30)
[2022-03-15] MEDS: INSULIN NPH, HUMAN 100 UNIT/1 ML SUB-Q SCH (09:30)
--- NOTE | 2022-03-15 12:08 | Progress Note ---
Assessment and Plan - Patient Problems (1) Poorly controlled diabetes mellitus Current Visit: Yes Status: Acute Plan to address problem: Obtain better glucose controlled with insulin therapy Continue monitoring (2) Polyhydramnios Current Visit: Yes Status: Acute Subjective - Subjective Date of service: 03/15/22 Principal diagnosis: IUP at 34w, Poorly controlled Diabetes, Thrombocytopenia, Elevated LFTs Interval history: The patient is currently without any significant complaints. Insulin has been initiated she had a fasting glucose level of 188 this a.m. discussed with patient the options for carbohydrate conscious diet. She denies any leakage of fluid or uterine contractions. Patient reports: movement normal, other, no new complaints, no loss of fluid, no vaginal bleeding, no contractions Objective - Vital Signs Vital Signs: Vital Signs - 12hr 03/15/22 03/15/22 03/15/22 05:24 08:35 08:36 Temperature 97.7 F 99.0 F Pulse Rate 85 77 84 Respiratory 18 16 Rate Blood Pressure 110/68 114/58 Blood Pressure 110/68 114/58 [Left] O2 Sat by Pulse 99 99 Oximetry 03/15/22 03/15/22 03/15/22 08:40 08:45 08:50 Temperature Pulse Rate 97 H 78 81 Respiratory Rate Blood Pressure Blood Pressure [Left] O2 Sat by Pulse 94 98 99 Oximetry 03/15/22 03/15/22 03/15/22 08:55 09:00 09:05 Temperature Pulse Rate 75 84 85 Respiratory Rate Blood Pressure Blood Pressure [Left] O2 Sat by Pulse 98 98 98 Oximetry 03/15/22 03/15/22 03/15/22 09:10 09:15 09:20 Temperature Pulse Rate 79 85 72 Respiratory Rate Blood Pressure Blood Pressure [Left] O2 Sat by Pulse 98 99 99 Oximetry 03/15/22 03/15/22 03/15/22 09:25 09:30 10:44 Temperature Pulse Rate 81 103 H 63 Respiratory Rate Blood Pressure Blood Pressure [Left] O2 Sat by Pulse 98 99 100 Oximetry 03/15/22 03/15/22 03/15/22 10:49 10:54 10:59 Temperature Pulse Rate 77 78 91 H Respiratory Rate Blood Pressure Blood Pressure [Left] O2 Sat by Pulse 99 99 97 Oximetry 03/15/22 03/15/22 03/15/22 11:04 11:09 11:14 Temperature Pulse Rate 80 84 81 Respiratory Rate Blood Pressure Blood Pressure [Left] O2 Sat by Pulse 99 99 99 Oximetry 03/15/22 03/15/22 03/15/22 11:19 11:24 11:29 Temperature Pulse Rate 83 93 H 87 Respiratory Rate Blood Pressure Blood Pressure [Left] O2 Sat by Pulse 98 100 100 Oximetry 03/15/22 03/15/22 03/15/22 11:34 11:39 11:44 Temperature Pulse Rate 90 79 83 Respiratory Rate Blood Pressure Blood Pressure [Left] O2 Sat by Pulse 99 99 99 Oximetry 03/15/22 03/15/22 03/15/22 11:49 11:54 11:59 Temperature Pulse Rate 80 80 90 Respiratory Rate Blood Pressure Blood Pressure [Left] O2 Sat by Pulse 100 100 100 Oximetry 03/15/22 12:04 Temperature Pulse Rate 83 Respiratory Rate Blood Pressure Blood Pressure [Left] O2 Sat by Pulse 100 Oximetry - Labs Labs: Abnormal Labs 03/12/22 03/12/22 03/12/22 17:50 17:50 17:50 WBC 3.6 L Plt Count 122 L Sodium Potassium Chloride Carbon Dioxide Glucose POC Glucose Hemoglobin A1c AST 73 H ALT 106 H Lactate Dehydrogenase 201 H Total Protein Albumin Urine WBC (Auto) 7.0 H SARS-CoV-2 (PCR) 03/13/22 03/13/22 03/13/22 00:00 04:23 04:23 WBC 3.7 L 4.1 L Plt Count 119 L 111 L Sodium 129 L Potassium 5.1 H Chloride 93.3 L Carbon Dioxide 14 L Glucose 373 H POC Glucose Hemoglobin A1c AST 59 H ALT 86 H Lactate Dehydrogenase Total Protein 5.9 L Albumin 2.6 L Urine WBC (Auto) SARS-CoV-2 (PCR) 03/13/22 03/13/22 03/13/22 13:00 15:38 23:37 WBC Plt Count Sodium Potassium Chloride Carbon Dioxide Glucose POC Glucose 250 H 232 H Hemoglobin A1c AST ALT Lactate Dehydrogenase Total Protein Albumin Urine WBC (Auto) SARS-CoV-2 (PCR) Positive A 03/14/22 03/14/22 03/14/22 06:07 12:59 15:42 WBC Plt Count Sodium Potassium Chloride Carbon Dioxide Glucose POC Glucose 293 H 237 H 174 H Hemoglobin A1c AST ALT Lactate Dehydrogenase Total Protein Albumin Urine WBC (Auto) SARS-CoV-2 (PCR) 08/10/0403/14/22 03/14/22 17:32 18:12 18:12 WBC 3.7 L Plt Count Sodium Potassium Chloride Carbon Dioxide Glucose POC Glucose 238 H Hemoglobin A1c 8.7 H AST ALT Lactate Dehydrogenase Total Protein Albumin Urine WBC (Auto) SARS-CoV-2 (PCR) 03/14/22 03/14/22 03/15/22 18:12 19:26 01:12 WBC Plt Count Sodium 133 L Potassium Chloride Carbon Dioxide 16 L Glucose 254 H POC Glucose 268 H 267 H Hemoglobin A1c AST 43 H ALT 65 H Lactate Dehydrogenase Total Protein 6.0 L Albumin 2.4 L Urine WBC (Auto) SARS-CoV-2 (PCR) 03/15/22 03/15/22 05:13 09:27 WBC Plt Count Sodium Potassium Chloride Carbon Dioxide Glucose POC Glucose 252 H 188 H Hemoglobin A1c AST ALT Lactate Dehydrogenase Total Protein Albumin Urine WBC (Auto) SARS-CoV-2 (PCR) Laboratory Results - last 24 hr 03/14/22 03/14/22 03/14/22 12:59 15:42 17:32 WBC RBC Hgb Hct MCV MCH MCHC RDW Plt Count Sodium Potassium Chloride Carbon Dioxide Anion Gap BUN Creatinine Estimated GFR BUN/Creatinine Ratio Glucose POC Glucose 237 H 174 H 238 H Hemoglobin A1c Calcium Total Bilirubin AST ALT Alkaline Phosphatase Total Protein Albumin Albumin/Globulin Ratio 03/14/22 03/14/22 03/14/22 18:12 18:12 18:12 WBC 3.7 L RBC 3.78 Hgb 10.9 Hct 33.8 MCV 90 MCH 29 MCHC 32 RDW 14.3 Plt Count 141 Sodium 133 L Potassium 4.2 Chloride 100.9 Carbon Dioxide 16 L Anion Gap 20 BUN 16 Creatinine 1.0 Estimated GFR > 60 BUN/Creatinine Ratio 16 Glucose 254 H POC Glucose Hemoglobin A1c 8.7 H Calcium 8.9 Total Bilirubin 0.40 AST 43 H ALT 65 H Alkaline Phosphatase 115 Total Protein 6.0 L Albumin 2.4 L Albumin/Globulin Ratio 0.7 03/14/22 03/15/22 03/15/22 19:26 01:12 05:13 WBC RBC Hgb Hct MCV MCH MCHC RDW Plt Count Sodium Potassium Chloride Carbon Dioxide Anion Gap BUN Creatinine Estimated GFR BUN/Creatinine Ratio Glucose POC Glucose 268 H 267 H 252 H Hemoglobin A1c Calcium Total Bilirubin AST ALT Alkaline Phosphatase Total Protein Albumin Albumin/Globulin Ratio 03/15/22 09:27 WBC RBC Hgb Hct MCV MCH MCHC RDW Plt Count Sodium Potassium Chloride Carbon Dioxide Anion Gap BUN Creatinine Estimated GFR BUN/Creatinine Ratio Glucose POC Glucose 188 H Hemoglobin A1c Calcium Total Bilirubin AST ALT Alkaline Phosphatase Total Protein Albumin Albumin/Globulin Ratio
[2022-03-15] MEDS: ACETAMINOPHEN 325 MG TAB PO PRN (15:45)
--- NOTE | 2022-03-15 18:13 | Progress Note ---
Subjective - Subjective Date of service: 03/15/22 Principal diagnosis: IUP at 34w, Poorly controlled Diabetes, Thrombocytopenia, Elevated LFTs, Patient reports: movement normal, other, no new complaints, no loss of fluid, no vaginal bleeding, no contractions Objective - Vital Signs Vital Signs: Vital Signs - 12hr 03/15/22 03/15/22 03/15/22 08:35 08:36 08:40 Temperature 99.0 F Pulse Rate 77 84 97 H Respiratory 16 Rate Blood Pressure 114/58 Blood Pressure 114/58 [Left] O2 Sat by Pulse 99 99 94 Oximetry 03/15/22 03/15/22 03/15/22 08:45 08:50 08:55 Temperature Pulse Rate 78 81 75 Respiratory Rate Blood Pressure Blood Pressure [Left] O2 Sat by Pulse 98 99 98 Oximetry 03/15/22 03/15/22 03/15/22 09:00 09:05 09:10 Temperature Pulse Rate 84 85 79 Respiratory Rate Blood Pressure Blood Pressure [Left] O2 Sat by Pulse 98 98 98 Oximetry 03/15/22 03/15/22 03/15/22 09:15 09:20 09:25 Temperature Pulse Rate 85 72 81 Respiratory Rate Blood Pressure Blood Pressure [Left] O2 Sat by Pulse 99 99 98 Oximetry 03/15/22 03/15/22 03/15/22 09:30 10:44 10:49 Temperature Pulse Rate 103 H 63 77 Respiratory Rate Blood Pressure Blood Pressure [Left] O2 Sat by Pulse 99 100 99 Oximetry 03/15/22 03/15/22 03/15/22 10:54 10:59 11:04 Temperature Pulse Rate 78 91 H 80 Respiratory Rate Blood Pressure Blood Pressure [Left] O2 Sat by Pulse 99 97 99 Oximetry 03/15/22 03/15/22 03/15/22 11:09 11:14 11:19 Temperature Pulse Rate 84 81 83 Respiratory Rate Blood Pressure Blood Pressure [Left] O2 Sat by Pulse 99 99 98 Oximetry 03/15/22 03/15/22 03/15/22 11:24 11:29 11:34 Temperature Pulse Rate 93 H 87 90 Respiratory Rate Blood Pressure Blood Pressure [Left] O2 Sat by Pulse 100 100 99 Oximetry 03/15/22 03/15/22 03/15/22 11:39 11:44 11:49 Temperature Pulse Rate 79 83 80 Respiratory Rate Blood Pressure Blood Pressure [Left] O2 Sat by Pulse 99 99 100 Oximetry 03/15/22 03/15/22 03/15/22 11:54 11:59 12:04 Temperature Pulse Rate 80 90 83 Respiratory Rate Blood Pressure Blood Pressure [Left] O2 Sat by Pulse 100 100 100 Oximetry 03/15/22 03/15/22 03/15/22 12:09 12:14 12:19 Temperature Pulse Rate 75 77 70 Respiratory Rate Blood Pressure Blood Pressure [Left] O2 Sat by Pulse 99 98 100 Oximetry 03/15/22 03/15/22 03/15/22 12:24 15:18 15:30 Temperature Pulse Rate 77 49 L 67 Respiratory Rate Blood Pressure Blood Pressure [Left] O2 Sat by Pulse 100 90 89 Oximetry 03/15/22 03/15/22 03/15/22 15:31 15:35 15:40 Temperature 99.6 F Pulse Rate 78 79 95 H Respiratory 18 Rate Blood Pressure 122/71 Blood Pressure 122/71 [Left] O2 Sat by Pulse 98 98 99 Oximetry 03/15/22 03/15/22 03/15/22 15:45 15:50 15:55 Temperature Pulse Rate 72 80 74 Respiratory Rate Blood Pressure Blood Pressure [Left] O2 Sat by Pulse 98 98 98 Oximetry 03/15/22 03/15/22 03/15/22 16:00 16:05 16:10 Temperature Pulse Rate 76 67 73 Respiratory Rate Blood Pressure Blood Pressure [Left] O2 Sat by Pulse 99 97 98 Oximetry 03/15/22 03/15/22 03/15/22 16:15 16:20 16:25 Temperature Pulse Rate 79 73 68 Respiratory Rate Blood Pressure Blood Pressure [Left] O2 Sat by Pulse 98 99 98 Oximetry 03/15/22 03/15/22 03/15/22 16:30 16:35 16:40 Temperature Pulse Rate 79 78 84 Respiratory Rate Blood Pressure Blood Pressure [Left] O2 Sat by Pulse 99 98 98 Oximetry 03/15/22 03/15/22 03/15/22 16:45 16:48 16:54 Temperature Pulse Rate 81 122 H 120 H Respiratory Rate Blood Pressure Blood Pressure [Left] O2 Sat by Pulse 98 84 85 Oximetry 03/15/22 03/15/22 03/15/22 17:02 17:05 17:10 Temperature Pulse Rate 132 H 136 H Respiratory Rate Blood Pressure Blood Pressure [Left] O2 Sat by Pulse 85 85 85 Oximetry 03/15/22 03/15/22 03/15/22 17:15 17:20 17:25 Temperature Pulse Rate 148 H 137 H 124 H Respiratory Rate Blood Pressure Blood Pressure [Left] O2 Sat by Pulse 86 85 86 Oximetry 03/15/22 03/15/22 17:27 17:30 Temperature Pulse Rate 128 H Respiratory Rate Blood Pressure Blood Pressure [Left] O2 Sat by Pulse 86 85 Oximetry - Labs Labs: Abnormal Labs 03/12/22 03/12/22 03/12/22 17:50 17:50 17:50 WBC 3.6 L Plt Count 122 L Sodium Potassium Chloride Carbon Dioxide Glucose POC Glucose Hemoglobin A1c AST 73 H ALT 106 H Lactate Dehydrogenase 201 H Total Protein Albumin Urine WBC (Auto) 7.0 H SARS-CoV-2 (PCR) 03/13/22 03/13/22 03/13/22 00:00 04:23 04:23 WBC 3.7 L 4.1 L Plt Count 119 L 111 L Sodium 129 L Potassium 5.1 H Chloride 93.3 L Carbon Dioxide 14 L Glucose 373 H POC Glucose Hemoglobin A1c AST 59 H ALT 86 H Lactate Dehydrogenase Total Protein 5.9 L Albumin 2.6 L Urine WBC (Auto) SARS-CoV-2 (PCR) 03/13/22 03/13/22 03/13/22 13:00 15:38 23:37 WBC Plt Count Sodium Potassium Chloride Carbon Dioxide Glucose POC Glucose 250 H 232 H Hemoglobin A1c AST ALT Lactate Dehydrogenase Total Protein Albumin Urine WBC (Auto) SARS-CoV-2 (PCR) Positive A 03/14/22 03/14/22 03/14/22 06:07 12:59 15:42 WBC Plt Count Sodium Potassium Chloride Carbon Dioxide Glucose POC Glucose 293 H 237 H 174 H Hemoglobin A1c AST ALT Lactate Dehydrogenase Total Protein Albumin Urine WBC (Auto) SARS-CoV-2 (PCR) 03/14/22 03/14/22 03/14/22 17:32 18:12 18:12 WBC 3.7 L Plt Count Sodium Potassium Chloride Carbon Dioxide Glucose POC Glucose 238 H Hemoglobin A1c 8.7 H AST ALT Lactate Dehydrogenase Total Protein Albumin Urine WBC (Auto) SARS-CoV-2 (PCR) 03/14/22 03/14/22 03/15/22 18:12 19:26 01:12 WBC Plt Count Sodium 133 L Potassium Chloride Carbon Dioxide 16 L Glucose 254 H POC Glucose 268 H 267 H Hemoglobin A1c AST 43 H ALT 65 H Lactate Dehydrogenase Total Protein 6.0 L Albumin 2.4 L Urine WBC (Auto) SARS-CoV-2 (PCR) 03/15/22 03/15/22 03/15/22 05:13 09:27 12:20 WBC Plt Count Sodium Potassium Chloride Carbon Dioxide Glucose POC Glucose 252 H 188 H 160 H Hemoglobin A1c AST ALT Lactate Dehydrogenase Total Protein Albumin Urine WBC (Auto) SARS-CoV-2 (PCR) 03/15/22 15:16 WBC Plt Count Sodium Potassium Chloride Carbon Dioxide Glucose POC Glucose 157 H Hemoglobin A1c AST ALT Lactate Dehydrogenase Total Protein Albumin Urine WBC (Auto) SARS-CoV-2 (PCR) Laboratory Results - last 24 hr 03/14/22 03/14/22 03/14/22 18:12 18:12 18:12 WBC 3.7 L RBC 3.78 Hgb 10.9 Hct 33.8 MCV 90 MCH 29 MCHC 32 RDW 14.3 Plt Count 141 Sodium 133 L Potassium 4.2 Chloride 100.9 Carbon Dioxide 16 L Anion Gap 20 BUN 16 Creatinine 1.0 Estimated GFR > 60 BUN/Creatinine Ratio 16 Glucose 254 H POC Glucose Hemoglobin A1c 8.7 H Calcium 8.9 Total Bilirubin 0.40 AST 43 H ALT 65 H Alkaline Phosphatase 115 Total Protein 6.0 L Albumin 2.4 L Albumin/Globulin Ratio 0.7 03/14/22 03/15/22 03/15/22 19:26 01:12 05:13 WBC RBC Hgb Hct MCV MCH MCHC RDW Plt Count Sodium Potassium Chloride Carbon Dioxide Anion Gap BUN Creatinine Estimated GFR BUN/Creatinine Ratio Glucose POC Glucose 268 H 267 H 252 H Hemoglobin A1c Calcium Total Bilirubin AST ALT Alkaline Phosphatase Total Protein Albumin Albumin/Globulin Ratio 03/15/22 03/15/22 03/15/22 09:27 12:20 15:16 WBC RBC Hgb Hct MCV MCH MCHC RDW Plt Count Sodium Potassium Chloride Carbon Dioxide Anion Gap BUN Creatinine Estimated GFR BUN/Creatinine Ratio Glucose POC Glucose 188 H 160 H 157 H Hemoglobin A1c Calcium Total Bilirubin AST ALT Alkaline Phosphatase Total Protein Albumin Albumin/Globulin Ratio - Results US- obstetric: report reviewed
--- NOTE | 2022-03-15 18:22 | Progress Note ---
Assessment and Plan IMPRESSION: 1. IUP 33w4d 2. Poorly controlled diabetes, likely exacerbated by BMZ, however, with improving values 3. Normal BPs, PIH unlikely, however, with elevated (improving) LFTs 4. BPP was reassuring 5. Covid + 6. Not in labor RECOMMENDATIONS: 1. Monito on standing insulin and cove elevated values with sliding scale 2. Repeat PIH labs due to elevated LFTs 3. D/C planning with stable BPs/Labs, Glucose control 4. F/U [facility] when Covid Neative 5. Deliver at 35-36 weeks based on BS and BP control Subjective - Subjective Date of service: 03/15/22 Principal diagnosis: IUP at 34w, Poorly controlled Diabetes, Thrombocytopenia, Elevated LFTs, Patient reports: movement normal, other, no new complaints, no loss of fluid, no vaginal bleeding, no contractions Objective - Vital Signs Vital Signs: Vital Signs - 12hr 03/15/22 03/15/22 03/15/22 08:35 08:36 08:40 Temperature 99.0 F Pulse Rate 77 84 97 H Respiratory 16 Rate Blood Pressure 114/58 Blood Pressure 114/58 [Left] O2 Sat by Pulse 99 99 94 Oximetry 03/15/22 03/15/22 03/15/22 08:45 08:50 08:55 Temperature Pulse Rate 78 81 75 Respiratory Rate Blood Pressure Blood Pressure [Left] O2 Sat by Pulse 98 99 98 Oximetry 03/15/22 03/15/22 03/15/22 09:00 09:05 09:10 Temperature Pulse Rate 84 85 79 Respiratory Rate Blood Pressure Blood Pressure [Left] O2 Sat by Pulse 98 98 98 Oximetry 03/15/22 03/15/22 03/15/22 09:15 09:20 09:25 Temperature Pulse Rate 85 72 81 Respiratory Rate Blood Pressure Blood Pressure [Left] O2 Sat by Pulse 99 99 98 Oximetry 03/15/22 03/15/22 03/15/22 09:30 10:44 10:49 Temperature Pulse Rate 103 H 63 77 Respiratory Rate Blood Pressure Blood Pressure [Left] O2 Sat by Pulse 99 100 99 Oximetry 03/15/22 03/15/22 03/15/22 10:54 10:59 11:04 Temperature Pulse Rate 78 91 H 80 Respiratory Rate Blood Pressure Blood Pressure [Left] O2 Sat by Pulse 99 97 99 Oximetry 03/15/22 03/15/22 03/15/22 11:09 11:14 11:19 Temperature Pulse Rate 84 81 83 Respiratory Rate Blood Pressure Blood Pressure [Left] O2 Sat by Pulse 99 99 98 Oximetry 03/15/22 03/15/22 03/15/22 11:24 11:29 11:34 Temperature Pulse Rate 93 H 87 90 Respiratory Rate Blood Pressure Blood Pressure [Left] O2 Sat by Pulse 100 100 99 Oximetry 03/15/22 03/15/22 03/15/22 11:39 11:44 11:49 Temperature Pulse Rate 79 83 80 Respiratory Rate Blood Pressure Blood Pressure [Left] O2 Sat by Pulse 99 99 100 Oximetry 03/15/22 03/15/22 03/15/22 11:54 11:59 12:04 Temperature Pulse Rate 80 90 83 Respiratory Rate Blood Pressure Blood Pressure [Left] O2 Sat by Pulse 100 100 100 Oximetry 03/15/22 03/15/22 03/15/22 12:09 12:14 12:19 Temperature Pulse Rate 75 77 70 Respiratory Rate Blood Pressure Blood Pressure [Left] O2 Sat by Pulse 99 98 100 Oximetry 03/15/22 03/15/22 03/15/22 12:24 15:18 15:30 Temperature Pulse Rate 77 49 L 67 Respiratory Rate Blood Pressure Blood Pressure [Left] O2 Sat by Pulse 100 90 89 Oximetry 03/15/22 03/15/22 03/15/22 15:31 15:35 15:40 Temperature 99.6 F Pulse Rate 78 79 95 H Respiratory 18 Rate Blood Pressure 122/71 Blood Pressure 122/71 [Left] O2 Sat by Pulse 98 98 99 Oximetry 03/15/22 03/15/22 03/15/22 15:45 15:50 15:55 Temperature Pulse Rate 72 80 74 Respiratory Rate Blood Pressure Blood Pressure [Left] O2 Sat by Pulse 98 98 98 Oximetry 03/15/22 03/15/22 03/15/22 16:00 16:05 16:10 Temperature Pulse Rate 76 67 73 Respiratory Rate Blood Pressure Blood Pressure [Left] O2 Sat by Pulse 99 97 98 Oximetry 03/15/22 03/15/22 03/15/22 16:15 16:20 16:25 Temperature Pulse Rate 79 73 68 Respiratory Rate Blood Pressure Blood Pressure [Left] O2 Sat by Pulse 98 99 98 Oximetry 03/15/22 03/15/22 03/15/22 16:30 16:35 16:40 Temperature Pulse Rate 79 78 84 Respiratory Rate Blood Pressure Blood Pressure [Left] O2 Sat by Pulse 99 98 98 Oximetry 03/15/22 03/15/22 03/15/22 16:45 16:48 16:54 Temperature Pulse Rate 81 122 H 120 H Respiratory Rate Blood Pressure Blood Pressure [Left] O2 Sat by Pulse 98 84 85 Oximetry 03/15/22 03/15/22 03/15/22 17:02 17:05 17:10 Temperature Pulse Rate 132 H 136 H Respiratory Rate Blood Pressure Blood Pressure [Left] O2 Sat by Pulse 85 85 85 Oximetry 03/15/22 03/15/22 03/15/22 17:15 17:20 17:25 Temperature Pulse Rate 148 H 137 H 124 H Respiratory Rate Blood Pressure Blood Pressure [Left] O2 Sat by Pulse 86 85 86 Oximetry 03/15/22 03/15/22 17:27 17:30 Temperature Pulse Rate 128 H Respiratory Rate Blood Pressure Blood Pressure [Left] O2 Sat by Pulse 86 85 Oximetry - Labs Labs: Abnormal Labs 03/12/22 03/12/22 03/12/22 17:50 17:50 17:50 WBC 3.6 L Plt Count 122 L Sodium Potassium Chloride Carbon Dioxide Glucose POC Glucose Hemoglobin A1c AST 73 H ALT 106 H Lactate Dehydrogenase 201 H Total Protein Albumin Urine WBC (Auto) 7.0 H SARS-CoV-2 (PCR) 03/13/22 03/13/22 03/13/22 00:00 04:23 04:23 WBC 3.7 L 4.1 L Plt Count 119 L 111 L Sodium 129 L Potassium 5.1 H Chloride 93.3 L Carbon Dioxide 14 L Glucose 373 H POC Glucose Hemoglobin A1c AST 59 H ALT 86 H Lactate Dehydrogenase Total Protein 5.9 L Albumin 2.6 L Urine WBC (Auto) SARS-CoV-2 (PCR) 03/13/22 03/13/22 03/13/22 13:00 15:38 23:37 WBC Plt Count Sodium Potassium Chloride Carbon Dioxide Glucose POC Glucose 250 H 232 H Hemoglobin A1c AST ALT Lactate Dehydrogenase Total Protein Albumin Urine WBC (Auto) SARS-CoV-2 (PCR) Positive A 03/14/22 03/14/22 03/14/22 06:07 12:59 15:42 WBC Plt Count Sodium Potassium Chloride Carbon Dioxide Glucose POC Glucose 293 H 237 H 174 H Hemoglobin A1c AST ALT Lactate Dehydrogenase Total Protein Albumin Urine WBC (Auto) SARS-CoV-2 (PCR) 03/14/22 03/14/22 03/14/22 17:32 18:12 18:12 WBC 3.7 L Plt Count Sodium Potassium Chloride Carbon Dioxide Glucose POC Glucose 238 H Hemoglobin A1c 8.7 H AST ALT Lactate Dehydrogenase Total Protein Albumin Urine WBC (Auto) SARS-CoV-2 (PCR) 03/14/22 03/14/22 03/15/22 18:12 19:26 01:12 WBC Plt Count Sodium 133 L Potassium Chloride Carbon Dioxide 16 L Glucose 254 H POC Glucose 268 H 267 H Hemoglobin A1c AST 43 H ALT 65 H Lactate Dehydrogenase Total Protein 6.0 L Albumin 2.4 L Urine WBC (Auto) SARS-CoV-2 (PCR) 03/15/22 03/15/22 03/15/22 05:13 09:27 12:20 WBC Plt Count Sodium Potassium Chloride Carbon Dioxide Glucose POC Glucose 252 H 188 H 160 H Hemoglobin A1c AST ALT Lactate Dehydrogenase Total Protein Albumin Urine WBC (Auto) SARS-CoV-2 (PCR) 03/15/22 15:16 WBC Plt Count Sodium Potassium Chloride Carbon Dioxide Glucose POC Glucose 157 H Hemoglobin A1c AST ALT Lactate Dehydrogenase Total Protein Albumin Urine WBC (Auto) SARS-CoV-2 (PCR) Laboratory Results - last 24 hr 03/14/22 03/14/22 03/14/22 18:12 18:12 18:12 WBC 3.7 L RBC 3.78 Hgb 10.9 Hct 33.8 MCV 90 MCH 29 MCHC 32 RDW 14.3 Plt Count 141 Sodium 133 L Potassium 4.2 Chloride 100.9 Carbon Dioxide 16 L Anion Gap 20 BUN 16 Creatinine 1.0 Estimated GFR > 60 BUN/Creatinine Ratio 16 Glucose 254 H POC Glucose Hemoglobin A1c 8.7 H Calcium 8.9 Total Bilirubin 0.40 AST 43 H ALT 65 H Alkaline Phosphatase 115 Total Protein 6.0 L Albumin 2.4 L Albumin/Globulin Ratio 0.7 03/14/22 03/15/22 03/15/22 19:26 01:12 05:13 WBC RBC Hgb Hct MCV MCH MCHC RDW Plt Count Sodium Potassium Chloride Carbon Dioxide Anion Gap BUN Creatinine Estimated GFR BUN/Creatinine Ratio Glucose POC Glucose 268 H 267 H 252 H Hemoglobin A1c Calcium Total Bilirubin AST ALT Alkaline Phosphatase Total Protein Albumin Albumin/Globulin Ratio 03/15/22 03/15/22 03/15/22 09:27 12:20 15:16 WBC RBC Hgb Hct MCV MCH MCHC RDW Plt Count Sodium Potassium Chloride Carbon Dioxide Anion Gap BUN Creatinine Estimated GFR BUN/Creatinine Ratio Glucose POC Glucose 188 H 160 H 157 H Hemoglobin A1c Calcium Total Bilirubin AST ALT Alkaline Phosphatase Total Protein Albumin Albumin/Globulin Ratio
--- NOTE | 2022-03-16 08:25 | Progress Note ---
Assessment and Plan - Patient Problems (1) Poorly controlled diabetes mellitus Current Visit: Yes Status: Acute Plan to address problem: Clinical improvement in glucose levels Continue current management plan Repeat CBC and CMP today (2) Polyhydramnios Current Visit: Yes Status: Acute Subjective - Subjective Date of service: 03/16/22 Principal diagnosis: IUP at 34w, Poorly controlled Diabetes, Thrombocytopenia, Elevated LFTs, Interval history: The patient is currently without any significant complaints. The patient has had improvement in her glucose levels. She has also remained normotensive Patient reports: movement normal, other, no new complaints, no loss of fluid, no vaginal bleeding, no contractions Objective - Vital Signs Vital Signs: Vital Signs - 12hr 03/15/22 03/15/22 03/15/22 21:16 21:17 21:21 Temperature 99.3 F Pulse Rate 72 78 Respiratory 16 Rate Blood Pressure 116/61 Blood Pressure 116/61 [Right] O2 Sat by Pulse 99 99 90 Oximetry O2 Sat by Pulse Oximetry [ Bilateral] 03/15/22 03/16/22 03/16/22 23:34 06:05 06:08 Temperature 98.7 F Pulse Rate 86 Respiratory Rate Blood Pressure 112/56 Blood Pressure [Right] O2 Sat by Pulse Oximetry O2 Sat by Pulse 100 Oximetry [ Bilateral] 03/16/22 03/16/22 07:42 07:52 Temperature 98.3 F Pulse Rate 87 Respiratory 18 Rate Blood Pressure 122/57 Blood Pressure [Right] O2 Sat by Pulse Oximetry O2 Sat by Pulse Oximetry [ Bilateral] - Labs Labs: Abnormal Labs 03/12/22 03/12/22 03/12/22 17:50 17:50 17:50 WBC 3.6 L Plt Count 122 L Sodium Potassium Chloride Carbon Dioxide Glucose POC Glucose Hemoglobin A1c AST 73 H ALT 106 H Lactate Dehydrogenase 201 H Total Protein Albumin Urine WBC (Auto) 7.0 H SARS-CoV-2 (PCR) 03/13/22 03/13/22 03/13/22 00:00 04:23 04:23 WBC 3.7 L 4.1 L Plt Count 119 L 111 L Sodium 129 L Potassium 5.1 H Chloride 93.3 L Carbon Dioxide 14 L Glucose 373 H POC Glucose Hemoglobin A1c AST 59 H ALT 86 H Lactate Dehydrogenase Total Protein 5.9 L Albumin 2.6 L Urine WBC (Auto) SARS-CoV-2 (PCR) 03/13/22 03/13/22 03/13/22 13:00 15:38 23:37 WBC Plt Count Sodium Potassium Chloride Carbon Dioxide Glucose POC Glucose 250 H 232 H Hemoglobin A1c AST ALT Lactate Dehydrogenase Total Protein Albumin Urine WBC (Auto) SARS-CoV-2 (PCR) Positive A 03/14/22 03/14/22 03/14/22 06:07 12:59 15:42 WBC Plt Count Sodium Potassium Chloride Carbon Dioxide Glucose POC Glucose 293 H 237 H 174 H Hemoglobin A1c AST ALT Lactate Dehydrogenase Total Protein Albumin Urine WBC (Auto) SARS-CoV-2 (PCR) 03/14/22 03/14/22 03/14/22 17:32 18:12 18:12 WBC 3.7 L Plt Count Sodium Potassium Chloride Carbon Dioxide Glucose POC Glucose 238 H Hemoglobin A1c 8.7 H AST ALT Lactate Dehydrogenase Total Protein Albumin Urine WBC (Auto) SARS-CoV-2 (PCR) 03/14/22 03/14/22 03/15/22 18:12 19:26 01:12 WBC Plt Count Sodium 133 L Potassium Chloride Carbon Dioxide 16 L Glucose 254 H POC Glucose 268 H 267 H Hemoglobin A1c AST 43 H ALT 65 H Lactate Dehydrogenase Total Protein 6.0 L Albumin 2.4 L Urine WBC (Auto) SARS-CoV-2 (PCR) 03/15/22 03/15/22 03/15/22 05:13 09:27 12:20 WBC Plt Count Sodium Potassium Chloride Carbon Dioxide Glucose POC Glucose 252 H 188 H 160 H Hemoglobin A1c AST ALT Lactate Dehydrogenase Total Protein Albumin Urine WBC (Auto) SARS-CoV-2 (PCR) 03/15/22 03/15/22 03/16/22 15:16 22:20 06:09 WBC Plt Count Sodium Potassium Chloride Carbon Dioxide Glucose POC Glucose 157 H 107 H 136 H Hemoglobin A1c AST ALT Lactate Dehydrogenase Total Protein Albumin Urine WBC (Auto) SARS-CoV-2 (PCR) Laboratory Results - last 24 hr 03/15/22 03/15/22 03/15/22 09:27 12:20 15:16 POC Glucose 188 H 160 H 157 H 03/15/22 03/15/22 03/16/22 20:06 22:20 06:09 POC Glucose 104 107 H 136 H
[2022-03-16] MEDS: INSULIN REGULAR, HUMAN 100 UNITS/1 ML SUB-Q SCH ×2 (09:17→16:12)
[2022-03-16] MEDS: INSULIN NPH, HUMAN 100 UNIT/1 ML SUB-Q SCH ×2 (09:18→16:13)
[2022-03-16 10:02] LABS: Hematocrit 36.2 % (30.3-42.9); Hemoglobin 11.8 gm/dl (10.1-14.3); Mean Corpuscular HGB Conc 33 % (30-34); Mean Corpuscular Volume 89 fl (79-97); Platelet Count 157 K/mm3 (140-440); Red Blood Count 4.07 M/mm3 (3.65-5.03); Red Cell Distribution Width 14.1 % (13.2-15.2)
[2022-03-16 10:19] LABS: Alanine Aminotransferase 78 units/L (7-56); Albumin 2.7 g/dL (3.9-5); Blood Urea Nitrogen 17 mg/dL (7-17); Calcium 9.1 mg/dL (8.4-10.2); Hemolysis Index 113
[2022-03-16 10:22] LABS: BUN/Creatinine Ratio 24
--- NOTE | 2022-03-16 12:31 | Consultation ---
History of Present Illness Consult date: 03/16/22 Requesting physician: HASMUKH CASTELLANOS Reason for consult: gestational hypertension History of present illness: As you are likely aware this is a 22-year-old patient followed by our office due to leg edema, isolated episodes of elevated blood pressures and poorly controlled gestational diabetes hospitalized at [facility] due to asthma polyhydramnios and obesity. 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 History: chlamydia (treated with negative test of cure ), other (h/o ovarian cyst) Family/Genetic History: none - Obstetrical History : 2 Medications and Allergies Allergies Allergy/AdvReac Type Severity Reaction Status Date / Time No Known Allergies Allergy Unverified 03/04/22 18:02 Home Medications Medication Instructions Recorded Confirmed Last Taken Type Ibuprofen [Motrin] 600 mg PO Q8H PRN #20 tablet 12/08/19 Unknown Rx Metoclopramide [Reglan] 10 mg PO TID PRN #90 tab 03/01/22 Unknown Rx Ondansetron [Zofran ODT TAB] 8 mg PO Q12HR PRN #30 tab.rapdis 03/01/22 Unknown Rx Lactulose [Cephulac] 20 gm PO BID PRN #473 ml 03/04/22 Unknown Rx Active Meds: Active Medications Acetaminophen (Acetaminophen 325 Mg Tab) 650 mg PO Q4H PRN PRN Reason: Pain, Mild (1-3) Last Admin: 03/15/22 15:45 Dose: 650 mg Butorphanol Tartrate (Butorphanol 2 Mg/1 Ml Inj) 1 mg IV Q2H PRN PRN Reason: Pain, Moderate(4-6) LABOR PAIN Butorphanol Tartrate (Butorphanol 2 Mg/1 Ml Inj) 2 mg IV Q2H PRN PRN Reason: Pain , Severe (7-10) Dextrose (Dextrose 50% In Water (25gm) 50 Ml Syringe) 50 ml IV Q30MIN PRN; Protocol PRN Reason: Hypoglycemia Fentanyl (Fentanyl 100 Mcg/2 Ml Inj) 100 mcg IV Q2H PRN PRN Reason: Pain,Severe (7-10) LABOR PAIN Insulin Human NPH (Insulin Nph, Human 100 Unit/1 Ml) 39 unit SUB-Q QDDIAB [facility] Last Admin: 03/16/22 09:18 Dose: 39 unit Insulin Human NPH (Insulin Nph, Human 100 Unit/1 Ml) 14 unit SUB-Q QPMDIAB [facility] Last Admin: 03/14/22 23:04 Dose: Not Given Insulin Human Regular (Insulin Regular, Human 100 Units/1 Ml) 19 units SUB-Q QDDIAB [facility] Last Admin: 03/16/22 09:17 Dose: 19 units Insulin Human Regular (Insulin Regular, Human 100 Units/1 Ml) 14 units SUB-Q QPMDIAB [facility] Last Admin: 03/14/22 22:58 Dose: 14 units Insulin Human Regular (Insulin Regular, Human 100 Units/1 Ml) 0 units SUB-Q Q6H PRN; Protocol PRN Reason: Hyperglycemia Last Admin: 03/15/22 12:26 Dose: 3 units - Vital Signs Vital signs: Vital Signs Pulse Pulse Ox 107 H 98 03/12/22 17:21 03/12/22 17:21 Temp Pulse Resp BP Pulse Ox 98.3 F 87 18 122/57 100 03/16/22 07:42 03/16/22 07:52 03/16/22 07:42 03/16/22 07:52 03/16/22 07:45 Results Result Diagrams: 03/16/22 09:46 03/16/22 09:46 Abnormal lab results 03/15/22 03/15/22 03/16/22 Range/Units 15:16 22:20 06:09 Sodium (137-145) mmol/L Carbon Dioxide (22-30) mmol/L Glucose (65-100) mg/dL POC Glucose 157 H 107 H 136 H (70-105) mg/dL AST (5-40) units/L ALT (7-56) units/L Albumin (3.9-5) g/dL 03/16/22 03/16/22 Range/Units 09:46 11:00 Sodium 136 L (137-145) mmol/L Carbon Dioxide 20 L (22-30) mmol/L Glucose 132 H (65-100) mg/dL POC Glucose 140 H (70-105) mg/dL AST 85 H (5-40) units/L ALT 78 H (7-56) units/L Albumin 2.7 L (3.9-5) g/dL All other labs normal. Assessment and Plan ASSESSMENT IUP at 34 weeks 1 day Accelerated growth noted at 2981 g (at the 90th percentile) Type 2 diabetes on split insulin regimen with sliding scale see below Noncompliance as an outpatient. History of asthma with albuterol as needed Obesity Blood pressure stable with no [employer] symptoms Polyhydramnios COVID-19 infection Previous thrombocytopenia now with normal platelet count Elevated liver function test (now rising) Lower extremity edema negative Doppler studies. RECOMMENDATIONS: We would recommend ongoing hospitalization for this patient as opposed to outpatient management based on suboptimal control of blood sugar as evidenced by fasting blood sugar greater than 130. And rising liver function test. I have indicated that the timing for delivery in a patient with poorly controlled diabetes is earlier than term and should be based on clinical factors such as blood pressure, blood sugar values and serological testing. We would recommend twice-weekly biophysical profile and Monitor input and output Please note the aforementioned insulin sliding scale a. < 140: Hold Humalog Insulin b. 140-160: Humalog 4 Units c. 161-180: Humalog 6 Units d. 180-200: Humalog 10 Units e. 200-220: Humalog 12 Units f. 220-260: Humalog 14 Units g. >260: 16 Humalog Units In this clinical scenario we would recommend delivery between 35 weeks and 36 weeks. [facility] will continue to follow this patient.
[2022-03-16] MEDS: INSULIN REGULAR, HUMAN 100 UNITS/1 ML SUB-Q PRN (18:25)
[2022-03-17 08:09] LABS: Alanine Aminotransferase 71 units/L (7-56); Albumin 2.4 g/dL (3.9-5); BUN/Creatinine Ratio 25; Blood Urea Nitrogen 15 mg/dL (7-17); Calcium 8.9 mg/dL (8.4-10.2); Hemolysis Index 43
[2022-03-17] MEDS: INSULIN NPH, HUMAN 100 UNIT/1 ML SUB-Q SCH ×3 (10:35→18:20)
[2022-03-17] MEDS: INSULIN REGULAR, HUMAN 100 UNITS/1 ML SUB-Q SCH ×2 (10:37→18:21)
[2022-03-17] MEDS: INSULIN REGULAR, HUMAN 100 UNITS/1 ML SUB-Q PRN (13:03)
--- NOTE | 2022-03-17 13:32 | Progress Note ---
Assessment and Plan ROS: Resp: Pt denies chest pain Cardiovascular: Pt denies chest pain GI: Pt denies change in bowel habits : Pt denies difficulty urinating, kidney problems, painful urination. MSK: Pt denies joint pain Neuro: Pt denies dizziness, fainting, headache, pain, seizures. Endo: Denies thyroid problems. Reports diabetes Psych: Pt denies anxiety, depressed mood, mental or physical abuse, suicidal thoughts. [employer]: Pt is . Denies vaginal bleeding, LOF, contractions/ cramping, abdominal pain, headaches, nausea/vomiting IMPRESSION: 1. SIUP@ 34.3 weeks 2. [facility] Acclerated growth profile with most recent EFW 2981 gm @ 98% - s/p NIPT with primary OB: low risk, female 3. Type 2 DM, managed on split insulin therapy with sliding scale - log had been unavailable with [facility] - improved however today with elevated FBS of 136 and PPB of 182 - s/p BMZ BS levels had been exacerbated - s/p ECHO at [place] " Normal" with no follow up 4. Asthma, managed wit prn albuterol - clinically stable 5. Obesity. 6. Today with Stable Bp of 108/64 with NO SENIOR SCRUM MASTER features 7. Polyhydramnios 8. Positive COVID 19 infection 9. Non compliant patient with outpatient management - pt has not since [facility] since 02/20/22 - consuming outside 2199 ADA diet 10. Thrombocytopenia , likely gestational , resolved - most recent 157K - prior PLT level of 111K - 03/07/22 PLT 180K 11. 03/07/22 Elevated LFT 03/17/2022 AST /ALT 65/71 03/16/2022: AST: 85 ALT 78 03/14/2022: AST 43, ALT: 65 03/13/2022: AST 59 ALT: 86 03/12/2022: AST 73 ALT: 106 - Protein 24 hr urine ....140mg/24 hr 12. Lower Extremity edema Negative Doppler study - denies calf pain RECOMMENDATIONS: 1. Pt to remain in patient with continuous monitoring 2. Enforce 2200 ADA diet 3. Perform repeat LFTs and CBC 03/18/22 4. Continue FBS and PP 5. Continue twice a week BPP and repeat growth profile in 2 weeks 6. Document negative AFP for ONTD risk 7. Monitor I&O 8. Continue her current insulin therapy however additional coverage with sliding scale The Sliding scale is: a. < 140: Hold Humalog Insulin b. 140-160: Humalog 4 Units c. 161-180: Humalog 6 Units d. 180-200: Humalog 10 Units e. 200-220: Humalog 12 Units f. 220-260: Humalog 14 Units g. >260: 16 Humalog Units 9. LDA for PreE risks reduction 10. Due to non compliance /poorly controlled DM / Polyhydramnios with no or maternal compromise timing of delivery 35- 36 weeks Subjective - Subjective Date of service: 03/17/22 (03/17/22 (Pt is a 22 year old -[place] female who initially presented secondary to leg edema , right greater than left. She was noted to have isolated ( two) BPs with systolics greater than 140 . Presently BP 108/64 with no SENIOR SCRUM MASTER features S/P recent 24 hour urine at home, and She has had care at [facility] with comanagement by [facility] however pt has been non compliant with [facility] appoitments she has not seen [facility] since 02/20/2022 pregestational diabetes previously on Metformin 500 mg BID, asthma, polyhydramnios, and obesity)) Principal diagnosis: IUP at 34w, Poorly controlled Diabetes, Thrombocytopenia, Elevated LFTs, Patient reports: movement normal, other, no new complaints, no loss of fluid, no vaginal bleeding, no contractions Objective - Vital Signs Vital Signs: Vital Signs - 12hr 03/17/22 03/17/22 03/17/22 04:49 04:50 04:51 Temperature 97.9 F Pulse Rate 89 59 L 64 Respiratory 18 Rate Blood Pressure 113/60 Blood Pressure 113/60 [Right] O2 Sat by Pulse 84 100 100 Oximetry O2 Sat by Pulse Oximetry [ Bilateral] 03/17/22 03/17/22 03/17/22 08:25 11:08 11:09 Temperature Pulse Rate 85 93 H Respiratory Rate Blood Pressure 108/67 Blood Pressure [Right] O2 Sat by Pulse 99 Oximetry O2 Sat by Pulse 100 Oximetry [ Bilateral] 03/17/22 03/17/22 03/17/22 11:13 11:18 11:21 Temperature Pulse Rate 87 73 79 Respiratory Rate Blood Pressure Blood Pressure [Right] O2 Sat by Pulse 96 96 94 Oximetry O2 Sat by Pulse Oximetry [ Bilateral] 03/17/22 03/17/22 03/17/22 11:23 11:28 11:29 Temperature 98.1 F Pulse Rate 77 82 73 Respiratory 16 Rate Blood Pressure Blood Pressure 108/64 [Right] O2 Sat by Pulse 94 98 98 Oximetry O2 Sat by Pulse Oximetry [ Bilateral] 03/17/22 03/17/22 03/17/22 11:33 11:38 11:43 Temperature Pulse Rate 77 80 69 Respiratory Rate Blood Pressure Blood Pressure [Right] O2 Sat by Pulse 97 97 97 Oximetry O2 Sat by Pulse Oximetry [ Bilateral] 03/17/22 03/17/22 03/17/22 11:48 11:53 11:58 Temperature Pulse Rate 75 74 89 Respiratory Rate Blood Pressure Blood Pressure [Right] O2 Sat by Pulse 97 96 98 Oximetry O2 Sat by Pulse Oximetry [ Bilateral] 03/17/22 03/17/22 03/17/22 12:03 12:08 12:13 Temperature Pulse Rate 69 79 93 H Respiratory Rate Blood Pressure Blood Pressure [Right] O2 Sat by Pulse 97 97 97 Oximetry O2 Sat by Pulse Oximetry [ Bilateral] 03/17/22 03/17/22 03/17/22 12:18 12:23 12:28 Temperature Pulse Rate 92 H 83 75 Respiratory Rate Blood Pressure Blood Pressure [Right] O2 Sat by Pulse 96 98 98 Oximetry O2 Sat by Pulse Oximetry [ Bilateral] 03/17/22 03/17/22 03/17/22 12:33 12:38 12:43 Temperature Pulse Rate 90 79 75 Respiratory Rate Blood Pressure Blood Pressure [Right] O2 Sat by Pulse 99 98 98 Oximetry O2 Sat by Pulse Oximetry [ Bilateral] 03/17/22 12:48 Temperature Pulse Rate 94 H Respiratory Rate Blood Pressure Blood Pressure [Right] O2 Sat by Pulse 99 Oximetry O2 Sat by Pulse Oximetry [ Bilateral] - Exam Breasts: deferred Cardiovascular: Regular rate Lungs: Normal air movement Abdomen: Absent: tenderness, guarding Uterus: Absent: tenderness FHR: category 1 (for EGA ) Uterine Contraction Monitor Mode: External Uterine Contraction Pattern: Absent Uterine Tone Measurement Phase: Resting Extremities: edema (+1/+2) Deep Tendon Reflex Grade: Normal +2 - Labs Labs: Abnormal Labs 03/12/22 03/12/22 03/12/22 17:50 17:50 17:50 WBC 3.6 L Plt Count 122 L Sodium Potassium Chloride Carbon Dioxide Glucose POC Glucose Hemoglobin A1c AST 73 H ALT 106 H Lactate Dehydrogenase 201 H Total Protein Albumin Urine WBC (Auto) 7.0 H SARS-CoV-2 (PCR) 03/13/22 03/13/22 03/13/22 00:00 04:23 04:23 WBC 3.7 L 4.1 L Plt Count 119 L 111 L Sodium 129 L Potassium 5.1 H Chloride 93.3 L Carbon Dioxide 14 L Glucose 373 H POC Glucose Hemoglobin A1c AST 59 H ALT 86 H Lactate Dehydrogenase Total Protein 5.9 L Albumin 2.6 L Urine WBC (Auto) SARS-CoV-2 (PCR) 03/13/22 03/13/22 03/13/22 13:00 15:38 23:37 WBC Plt Count Sodium Potassium Chloride Carbon Dioxide Glucose POC Glucose 250 H 232 H Hemoglobin A1c AST ALT Lactate Dehydrogenase Total Protein Albumin Urine WBC (Auto) SARS-CoV-2 (PCR) Positive A 03/14/22 03/14/22 03/14/22 06:07 12:59 15:42 WBC Plt Count Sodium Potassium Chloride Carbon Dioxide Glucose POC Glucose 293 H 237 H 174 H Hemoglobin A1c AST ALT Lactate Dehydrogenase Total Protein Albumin Urine WBC (Auto) SARS-CoV-2 (PCR) 03/14/22 03/14/22 03/14/22 17:32 18:12 18:12 WBC 3.7 L Plt Count Sodium Potassium Chloride Carbon Dioxide Glucose POC Glucose 238 H Hemoglobin A1c 8.7 H AST ALT Lactate Dehydrogenase Total Protein Albumin Urine WBC (Auto) SARS-CoV-2 (PCR) 03/14/22 03/14/22 03/15/22 18:12 19:26 01:12 WBC Plt Count Sodium 133 L Potassium Chloride Carbon Dioxide 16 L Glucose 254 H POC Glucose 268 H 267 H Hemoglobin A1c AST 43 H ALT 65 H Lactate Dehydrogenase Total Protein 6.0 L Albumin 2.4 L Urine WBC (Auto) SARS-CoV-2 (PCR) 03/15/22 03/15/22 03/15/22 05:13 09:27 12:20 WBC Plt Count Sodium Potassium Chloride Carbon Dioxide Glucose POC Glucose 252 H 188 H 160 H Hemoglobin A1c AST ALT Lactate Dehydrogenase Total Protein Albumin Urine WBC (Auto) SARS-CoV-2 (PCR) 03/15/22 03/15/22 03/16/22 15:16 22:20 06:09 WBC Plt Count Sodium Potassium Chloride Carbon Dioxide Glucose POC Glucose 157 H 107 H 136 H Hemoglobin A1c AST ALT Lactate Dehydrogenase Total Protein Albumin Urine WBC (Auto) SARS-CoV-2 (PCR) 03/16/22 03/16/22 03/16/22 09:46 11:00 18:20 WBC Plt Count Sodium 136 L Potassium Chloride Carbon Dioxide 20 L Glucose 132 H POC Glucose 140 H 163 H Hemoglobin A1c AST 85 H ALT 78 H Lactate Dehydrogenase Total Protein Albumin 2.7 L Urine WBC (Auto) SARS-CoV-2 (PCR) 03/17/22 03/17/22 03/17/22 05:03 07:05 12:31 WBC Plt Count Sodium 133 L Potassium Chloride Carbon Dioxide 20 L Glucose 132 H POC Glucose 136 H 182 H Hemoglobin A1c AST 65 H ALT 71 H Lactate Dehydrogenase Total Protein 5.7 L Albumin 2.4 L Urine WBC (Auto) SARS-CoV-2 (PCR) Laboratory Results - last 24 hr 03/16/22 03/16/22 03/17/22 16:11 18:20 05:03 Sodium Potassium Chloride Carbon Dioxide Anion Gap BUN Creatinine Estimated GFR BUN/Creatinine Ratio Glucose POC Glucose 105 163 H 136 H Calcium Total Bilirubin AST ALT Alkaline Phosphatase Total Protein Albumin Albumin/Globulin Ratio 03/17/22 03/17/22 07:05 12:31 Sodium 133 L Potassium 4.2 Chloride 103.1 Carbon Dioxide 20 L Anion Gap 14 BUN 15 Creatinine 0.6 Estimated GFR > 60 BUN/Creatinine Ratio 25 Glucose 132 H POC Glucose 182 H Calcium 8.9 Total Bilirubin 0.60 AST 65 H ALT 71 H Alkaline Phosphatase 110 Total Protein 5.7 L Albumin 2.4 L Albumin/Globulin Ratio 0.7 - Results US- obstetric: other (see chart )
--- NOTE | 2022-03-17 18:40 | Progress Note ---
Assessment and Plan A: IUP at 34w2d s/p two doses of betamethasone since arrival Borderline BPs Thrombocytopenia Multiple Electrolyte Abnormalities Lower Extremity Edema; right greater then left; doppler study negative Pregestational Diabetes, poorly controlled on Metformin; initiated on scheduled insulin on 03/13/22 Polyhydramnios Obesity Asthma Chlamydia treated with negative test of cure GBS Positive P: Follow MFM recommendations Continue glucose control CBC, CMP this morning Closely monitor clinical status Subjective - Subjective Date of service: 03/17/22 Principal diagnosis: IUP at 34w3, Poorly controlled Diabetes, Thrombocytopenia, Elevated LFTs, Interval history: Overnight, pt received her second dose of betamethasone. No other issues reported. Pt has declined to eat much of the hospital food. Patient reports: movement normal, other, no new complaints, no loss of fluid, no vaginal bleeding, no contractions Objective - Vital Signs Vital Signs: Vital Signs - 12hr 03/17/22 03/17/22 03/17/22 08:25 11:08 11:09 Temperature Pulse Rate 85 93 H Respiratory Rate Blood Pressure 108/67 Blood Pressure [Right] O2 Sat by Pulse 99 Oximetry O2 Sat by Pulse 100 Oximetry [ Bilateral] 03/17/22 03/17/22 03/17/22 11:13 11:18 11:21 Temperature Pulse Rate 87 73 79 Respiratory Rate Blood Pressure Blood Pressure [Right] O2 Sat by Pulse 96 96 94 Oximetry O2 Sat by Pulse Oximetry [ Bilateral] 03/17/22 03/17/22 03/17/22 11:23 11:28 11:29 Temperature 98.1 F Pulse Rate 77 82 73 Respiratory 16 Rate Blood Pressure Blood Pressure 108/64 [Right] O2 Sat by Pulse 94 98 98 Oximetry O2 Sat by Pulse Oximetry [ Bilateral] 03/17/22 03/17/22 03/17/22 11:33 11:38 11:43 Temperature Pulse Rate 77 80 69 Respiratory Rate Blood Pressure Blood Pressure [Right] O2 Sat by Pulse 97 97 97 Oximetry O2 Sat by Pulse Oximetry [ Bilateral] 03/17/22 03/17/22 03/17/22 11:48 11:53 11:58 Temperature Pulse Rate 75 74 89 Respiratory Rate Blood Pressure Blood Pressure [Right] O2 Sat by Pulse 97 96 98 Oximetry O2 Sat by Pulse Oximetry [ Bilateral] 03/17/22 03/17/22 03/17/22 12:03 12:08 12:13 Temperature Pulse Rate 69 79 93 H Respiratory Rate Blood Pressure Blood Pressure [Right] O2 Sat by Pulse 97 97 97 Oximetry O2 Sat by Pulse Oximetry [ Bilateral] 03/17/22 03/17/22 03/17/22 12:18 12:23 12:28 Temperature Pulse Rate 92 H 83 75 Respiratory Rate Blood Pressure Blood Pressure [Right] O2 Sat by Pulse 96 98 98 Oximetry O2 Sat by Pulse Oximetry [ Bilateral] 03/17/22 03/17/22 03/17/22 12:33 12:38 12:43 Temperature Pulse Rate 90 79 75 Respiratory Rate Blood Pressure Blood Pressure [Right] O2 Sat by Pulse 99 98 98 Oximetry O2 Sat by Pulse Oximetry [ Bilateral] 03/17/22 12:48 Temperature Pulse Rate 94 H Respiratory Rate Blood Pressure Blood Pressure [Right] O2 Sat by Pulse 99 Oximetry O2 Sat by Pulse Oximetry [ Bilateral] - Exam Breasts: deferred Abdomen: Present: soft (obese, gravid ) Uterus: Present: normal (gravid ) FHR: auscultation normal Uterine Contraction Monitor Mode: External Uterine Contraction Pattern: Absent Extremities: edema - Labs Labs: Abnormal Labs 03/12/22 03/12/22 03/12/22 17:50 17:50 17:50 WBC 3.6 L Plt Count 122 L Sodium Potassium Chloride Carbon Dioxide Glucose POC Glucose Hemoglobin A1c AST 73 H ALT 106 H Lactate Dehydrogenase 201 H Total Protein Albumin Urine WBC (Auto) 7.0 H SARS-CoV-2 (PCR) 03/13/22 03/13/22 03/13/22 00:00 04:23 04:23 WBC 3.7 L 4.1 L Plt Count 119 L 111 L Sodium 129 L Potassium 5.1 H Chloride 93.3 L Carbon Dioxide 14 L Glucose 373 H POC Glucose Hemoglobin A1c AST 59 H ALT 86 H Lactate Dehydrogenase Total Protein 5.9 L Albumin 2.6 L Urine WBC (Auto) SARS-CoV-2 (PCR) 03/13/22 03/13/22 03/13/22 13:00 15:38 23:37 WBC Plt Count Sodium Potassium Chloride Carbon Dioxide Glucose POC Glucose 250 H 232 H Hemoglobin A1c AST ALT Lactate Dehydrogenase Total Protein Albumin Urine WBC (Auto) SARS-CoV-2 (PCR) Positive A 03/14/22 03/14/22 03/14/22 06:07 12:59 15:42 WBC Plt Count Sodium Potassium Chloride Carbon Dioxide Glucose POC Glucose 293 H 237 H 174 H Hemoglobin A1c AST ALT Lactate Dehydrogenase Total Protein Albumin Urine WBC (Auto) SARS-CoV-2 (PCR) 03/14/22 03/14/22 03/14/22 17:32 18:12 18:12 WBC 3.7 L Plt Count Sodium Potassium Chloride Carbon Dioxide Glucose POC Glucose 238 H Hemoglobin A1c 8.7 H AST ALT Lactate Dehydrogenase Total Protein Albumin Urine WBC (Auto) SARS-CoV-2 (PCR) 03/14/22 03/14/22 03/15/22 18:12 19:26 01:12 WBC Plt Count Sodium 133 L Potassium Chloride Carbon Dioxide 16 L Glucose 254 H POC Glucose 268 H 267 H Hemoglobin A1c AST 43 H ALT 65 H Lactate Dehydrogenase Total Protein 6.0 L Albumin 2.4 L Urine WBC (Auto) SARS-CoV-2 (PCR) 03/15/22 03/15/22 03/15/22 05:13 09:27 12:20 WBC Plt Count Sodium Potassium Chloride Carbon Dioxide Glucose POC Glucose 252 H 188 H 160 H Hemoglobin A1c AST ALT Lactate Dehydrogenase Total Protein Albumin Urine WBC (Auto) SARS-CoV-2 (PCR) 03/15/22 03/15/22 03/16/22 15:16 22:20 06:09 WBC Plt Count Sodium Potassium Chloride Carbon Dioxide Glucose POC Glucose 157 H 107 H 136 H Hemoglobin A1c AST ALT Lactate Dehydrogenase Total Protein Albumin Urine WBC (Auto) SARS-CoV-2 (PCR) 03/16/22 03/16/22 03/16/22 09:46 11:00 18:20 WBC Plt Count Sodium 136 L Potassium Chloride Carbon Dioxide 20 L Glucose 132 H POC Glucose 140 H 163 H Hemoglobin A1c AST 85 H ALT 78 H Lactate Dehydrogenase Total Protein Albumin 2.7 L Urine WBC (Auto) SARS-CoV-2 (PCR) 03/17/22 03/17/22 03/17/22 05:03 07:05 12:31 WBC Plt Count Sodium 133 L Potassium Chloride Carbon Dioxide 20 L Glucose 132 H POC Glucose 136 H 182 H Hemoglobin A1c AST 65 H ALT 71 H Lactate Dehydrogenase Total Protein 5.7 L Albumin 2.4 L Urine WBC (Auto) SARS-CoV-2 (PCR) 03/17/22 16:11 WBC Plt Count Sodium Potassium Chloride Carbon Dioxide Glucose POC Glucose 136 H Hemoglobin A1c AST ALT Lactate Dehydrogenase Total Protein Albumin Urine WBC (Auto) SARS-CoV-2 (PCR) Laboratory Results - last 24 hr 03/17/22 03/17/22 03/17/22 05:03 07:05 12:31 Sodium 133 L Potassium 4.2 Chloride 103.1 Carbon Dioxide 20 L Anion Gap 14 BUN 15 Creatinine 0.6 Estimated GFR > 60 BUN/Creatinine Ratio 25 Glucose 132 H POC Glucose 136 H 182 H Calcium 8.9 Total Bilirubin 0.60 AST 65 H ALT 71 H Alkaline Phosphatase 110 Total Protein 5.7 L Albumin 2.4 L Albumin/Globulin Ratio 0.7 03/17/22 16:11 Sodium Potassium Chloride Carbon Dioxide Anion Gap BUN Creatinine Estimated GFR BUN/Creatinine Ratio Glucose POC Glucose 136 H Calcium Total Bilirubin AST ALT Alkaline Phosphatase Total Protein Albumin Albumin/Globulin Ratio
--- NOTE | 2022-03-18 08:06 | Progress Note ---
Assessment and Plan A: IUP at 34w3d s/p two doses of betamethasone since arrival Borderline BPs Thrombocytopenia Multiple Electrolyte Abnormalities Lower Extremity Edema; right greater then left; doppler study negative Pregestational Diabetes, poorly controlled on Metformin; initiated on scheduled insulin on 03/13/22 Polyhydramnios Obesity Asthma Chlamydia treated with negative test of cure GBS Positive P: Follow MFM recommendations Continue glucose control with insulin CBC, CMP this morning BPP this morning Closely monitor clinical status Repeat COVID test today Subjective - Subjective Date of service: 03/18/22 Principal diagnosis: IUP at 34w3, Poorly controlled Diabetes, Thrombocytopenia, Elevated LFTs, Interval history: Overnight, no events. Patient reports: movement normal, other, no new complaints, no loss of fluid, no vaginal bleeding, no contractions Objective - Vital Signs Vital Signs: Vital Signs - 12hr 03/17/22 03/17/22 03/17/22 20:45 20:51 20:53 Temperature 98.1 F Pulse Rate 86 88 Respiratory 20 Rate Blood Pressure 130/74 Blood Pressure 130/74 [Right] O2 Sat by Pulse 99 Oximetry O2 Sat by Pulse 98 Oximetry [ Bilateral] 03/17/22 03/17/22 03/17/22 20:55 23:38 23:40 Temperature 98.2 F Pulse Rate 78 124 H 82 Respiratory 18 Rate Blood Pressure 129/81 Blood Pressure 129/81 [Right] O2 Sat by Pulse 81 L 84 99 Oximetry O2 Sat by Pulse Oximetry [ Bilateral] 03/18/22 03/18/22 03/18/22 00:01 00:07 00:36 Temperature Pulse Rate 152 H 53 L 61 Respiratory Rate Blood Pressure Blood Pressure [Right] O2 Sat by Pulse 86 0 L 0 L Oximetry O2 Sat by Pulse Oximetry [ Bilateral] 03/18/22 03/18/22 03/18/22 00:48 00:51 00:53 Temperature Pulse Rate 91 H Respiratory Rate Blood Pressure Blood Pressure [Right] O2 Sat by Pulse 80 L 85 68 L Oximetry O2 Sat by Pulse Oximetry [ Bilateral] 03/18/22 03/18/22 03/18/22 00:59 05:48 05:50 Temperature 97.9 F Pulse Rate 92 H 78 Respiratory 18 Rate Blood Pressure 111/71 Blood Pressure 111/71 [Right] O2 Sat by Pulse 68 L 99 99 Oximetry O2 Sat by Pulse Oximetry [ Bilateral] 03/18/22 03/18/22 03/18/22 07:54 08:00 08:01 Temperature 98.8 F Pulse Rate 79 71 73 Respiratory 18 Rate Blood Pressure 134/89 Blood Pressure [Right] O2 Sat by Pulse 75 L 100 80 L Oximetry O2 Sat by Pulse Oximetry [ Bilateral] - Exam Breasts: deferred Abdomen: Present: soft (obese, gravid ) Uterus: Present: normal (gravid ) FHR: auscultation normal Uterine Contraction Monitor Mode: External Uterine Contraction Pattern: Absent Extremities: edema - Labs Labs: Abnormal Labs 03/12/22 03/12/22 03/12/22 17:50 17:50 17:50 WBC 3.6 L Plt Count 122 L Sodium Potassium Chloride Carbon Dioxide Glucose POC Glucose Hemoglobin A1c AST 73 H ALT 106 H Lactate Dehydrogenase 201 H Total Protein Albumin Urine WBC (Auto) 7.0 H SARS-CoV-2 (PCR) 03/13/22 03/13/22 03/13/22 00:00 04:23 04:23 WBC 3.7 L 4.1 L Plt Count 119 L 111 L Sodium 129 L Potassium 5.1 H Chloride 93.3 L Carbon Dioxide 14 L Glucose 373 H POC Glucose Hemoglobin A1c AST 59 H ALT 86 H Lactate Dehydrogenase Total Protein 5.9 L Albumin 2.6 L Urine WBC (Auto) SARS-CoV-2 (PCR) 03/13/22 03/13/22 03/13/22 13:00 15:38 23:37 WBC Plt Count Sodium Potassium Chloride Carbon Dioxide Glucose POC Glucose 250 H 232 H Hemoglobin A1c AST ALT Lactate Dehydrogenase Total Protein Albumin Urine WBC (Auto) SARS-CoV-2 (PCR) Positive A 03/14/22 03/14/22 03/14/22 06:07 12:59 15:42 WBC Plt Count Sodium Potassium Chloride Carbon Dioxide Glucose POC Glucose 293 H 237 H 174 H Hemoglobin A1c AST ALT Lactate Dehydrogenase Total Protein Albumin Urine WBC (Auto) SARS-CoV-2 (PCR) 03/14/22 03/14/22 03/14/22 17:32 18:12 18:12 WBC 3.7 L Plt Count Sodium Potassium Chloride Carbon Dioxide Glucose POC Glucose 238 H Hemoglobin A1c 8.7 H AST ALT Lactate Dehydrogenase Total Protein Albumin Urine WBC (Auto) SARS-CoV-2 (PCR) 03/14/22 03/14/22 03/15/22 18:12 19:26 01:12 WBC Plt Count Sodium 133 L Potassium Chloride Carbon Dioxide 16 L Glucose 254 H POC Glucose 268 H 267 H Hemoglobin A1c AST 43 H ALT 65 H Lactate Dehydrogenase Total Protein 6.0 L Albumin 2.4 L Urine WBC (Auto) SARS-CoV-2 (PCR) 03/15/22 03/15/22 03/15/22 05:13 09:27 12:20 WBC Plt Count Sodium Potassium Chloride Carbon Dioxide Glucose POC Glucose 252 H 188 H 160 H Hemoglobin A1c AST ALT Lactate Dehydrogenase Total Protein Albumin Urine WBC (Auto) SARS-CoV-2 (PCR) 03/15/22 03/15/22 03/16/22 15:16 22:20 06:09 WBC Plt Count Sodium Potassium Chloride Carbon Dioxide Glucose POC Glucose 157 H 107 H 136 H Hemoglobin A1c AST ALT Lactate Dehydrogenase Total Protein Albumin Urine WBC (Auto) SARS-CoV-2 (PCR) 03/16/22 03/16/22 03/16/22 09:46 11:00 18:20 WBC Plt Count Sodium 136 L Potassium Chloride Carbon Dioxide 20 L Glucose 132 H POC Glucose 140 H 163 H Hemoglobin A1c AST 85 H ALT 78 H Lactate Dehydrogenase Total Protein Albumin 2.7 L Urine WBC (Auto) SARS-CoV-2 (PCR) 03/17/22 03/17/22 03/17/22 05:03 07:05 12:31 WBC Plt Count Sodium 133 L Potassium Chloride Carbon Dioxide 20 L Glucose 132 H POC Glucose 136 H 182 H Hemoglobin A1c AST 65 H ALT 71 H Lactate Dehydrogenase Total Protein 5.7 L Albumin 2.4 L Urine WBC (Auto) SARS-CoV-2 (PCR) 03/17/22 03/17/22 16:11 19:23 WBC Plt Count Sodium Potassium Chloride Carbon Dioxide Glucose POC Glucose 136 H 120 H Hemoglobin A1c AST ALT Lactate Dehydrogenase Total Protein Albumin Urine WBC (Auto) SARS-CoV-2 (PCR) Laboratory Results - last 24 hr 03/17/22 03/17/22 03/17/22 07:05 12:31 16:11 Sodium 133 L Potassium 4.2 Chloride 103.1 Carbon Dioxide 20 L Anion Gap 14 BUN 15 Creatinine 0.6 Estimated GFR > 60 BUN/Creatinine Ratio 25 Glucose 132 H POC Glucose 182 H 136 H Calcium 8.9 Total Bilirubin 0.60 AST 65 H ALT 71 H Alkaline Phosphatase 110 Total Protein 5.7 L Albumin 2.4 L Albumin/Globulin Ratio 0.7 03/17/22 03/18/22 19:23 05:46 Sodium Potassium Chloride Carbon Dioxide Anion Gap BUN Creatinine Estimated GFR BUN/Creatinine Ratio Glucose POC Glucose 120 H 98 Calcium Total Bilirubin AST ALT Alkaline Phosphatase Total Protein Albumin Albumin/Globulin Ratio
[2022-03-18 08:46] LABS: Alanine Aminotransferase 66 units/L (7-56)
[2022-03-18 09:10] LABS: Hematocrit 34.3 % (30.3-42.9); Hemoglobin 10.8 gm/dl (10.1-14.3); Mean Corpuscular HGB Conc 31 % (30-34); Mean Corpuscular Volume 90 fl (79-97); Platelet Count 167 K/mm3 (140-440)
[2022-03-18] MEDS: INSULIN NPH, HUMAN 100 UNIT/1 ML SUB-Q SCH ×2 (09:32→17:31)
[2022-03-18] MEDS: INSULIN REGULAR, HUMAN 100 UNITS/1 ML SUB-Q SCH ×3 (09:34→21:46)
--- NOTE | 2022-03-18 11:08 | Ultrasound Report ---
Biophysical profile Ultrasound HISTORY: well being, diabetes. TECHNIQUE: Grayscale and color imaging performed. COMPARISON: 03/13/2022 FINDINGS: Fetus received a score of 2 out of 2 for breathing, movement, posture/tone, and JOSEPH. Total score was 8 out of 8. Heart rate was 146 bpm. IMPRESSION: Normal BPP. Signer Name: Mark Galeas MD Signed: 03/18/2022 11:04 AM Workstation Name: [id number]
[2022-03-19] MEDS: INSULIN REGULAR, HUMAN 100 UNITS/1 ML SUB-Q SCH ×2 (09:07→17:53)
[2022-03-19] MEDS: INSULIN NPH, HUMAN 100 UNIT/1 ML SUB-Q SCH ×2 (09:11→17:56)
--- NOTE | 2022-03-19 09:18 | Progress Note ---
Assessment and Plan A: IUP at 34w4d s/p two doses of betamethasone since arrival Borderline BPs Thrombocytopenia Multiple Electrolyte Abnormalities Lower Extremity Edema; right greater then left; doppler study negative Pregestational Diabetes, poorly controlled on Metformin; initiated on scheduled insulin on 03/13/22 Polyhydramnios Obesity Asthma Chlamydia treated with negative test of cure GBS Positive P: Follow MFM recommendations Continue glucose control with insulin Closely monitor clinical status Subjective - Subjective Date of service: 03/19/22 Principal diagnosis: IUP at 34w4, Poorly controlled Diabetes, Thrombocytopenia, Elevated LFTs, Interval history: Overnight, no events. Pt reports some abdominal pain. Reports good movement. Patient reports: movement normal, other, no new complaints, no loss of fluid, no vaginal bleeding, no contractions Objective - Vital Signs Vital Signs: Vital Signs - 12hr 03/19/22 03/19/22 03/19/22 02:13 02:20 02:23 Pulse Rate 80 79 86 Blood Pressure 106/56 O2 Sat by Pulse 86 100 Oximetry O2 Sat by Pulse Oximetry [ Bilateral] 03/19/22 03/19/22 03/19/22 02:28 02:33 02:38 Pulse Rate 75 78 71 Blood Pressure O2 Sat by Pulse 99 99 99 Oximetry O2 Sat by Pulse Oximetry [ Bilateral] 03/19/22 03/19/22 03/19/22 02:43 02:48 02:53 Pulse Rate 80 73 72 Blood Pressure O2 Sat by Pulse 100 99 99 Oximetry O2 Sat by Pulse Oximetry [ Bilateral] 03/19/22 03/19/22 03/19/22 02:58 03:03 03:08 Pulse Rate 74 77 75 Blood Pressure O2 Sat by Pulse 99 99 99 Oximetry O2 Sat by Pulse Oximetry [ Bilateral] 03/19/22 03/19/22 03/19/22 08:36 08:40 08:43 Pulse Rate 68 70 Blood Pressure 111/65 O2 Sat by Pulse 93 99 Oximetry O2 Sat by Pulse Oximetry [ Bilateral] 03/19/22 03/19/22 03/19/22 08:45 08:50 08:55 Pulse Rate 73 69 73 Blood Pressure O2 Sat by Pulse 99 98 99 Oximetry O2 Sat by Pulse 96 Oximetry [ Bilateral] 03/19/22 03/19/22 03/19/22 09:00 09:05 09:10 Pulse Rate 73 87 89 Blood Pressure O2 Sat by Pulse 99 99 99 Oximetry O2 Sat by Pulse Oximetry [ Bilateral] - Exam Breasts: deferred Abdomen: Present: soft (obese, gravid ) Uterus: Present: normal (gravid ) FHR: auscultation normal Uterine Contraction Monitor Mode: External Uterine Contraction Pattern: Irregular Uterine Tone Measurement Phase: Resting Extremities: edema (2+ ) - Labs Labs: Abnormal Labs 03/12/22 03/12/22 03/12/22 17:50 17:50 17:50 WBC 3.6 L Plt Count 122 L Sodium Potassium Chloride Carbon Dioxide Glucose POC Glucose Hemoglobin A1c AST 73 H ALT 106 H Lactate Dehydrogenase 201 H Total Protein Albumin Urine WBC (Auto) 7.0 H SARS-CoV-2 (PCR) 03/13/22 03/13/22 03/13/22 00:00 04:23 04:23 WBC 3.7 L 4.1 L Plt Count 119 L 111 L Sodium 129 L Potassium 5.1 H Chloride 93.3 L Carbon Dioxide 14 L Glucose 373 H POC Glucose Hemoglobin A1c AST 59 H ALT 86 H Lactate Dehydrogenase Total Protein 5.9 L Albumin 2.6 L Urine WBC (Auto) SARS-CoV-2 (PCR) 03/13/22 03/13/22 03/13/22 13:00 15:38 23:37 WBC Plt Count Sodium Potassium Chloride Carbon Dioxide Glucose POC Glucose 250 H 232 H Hemoglobin A1c AST ALT Lactate Dehydrogenase Total Protein Albumin Urine WBC (Auto) SARS-CoV-2 (PCR) Positive A 03/14/22 03/14/22 03/14/22 06:07 12:59 15:42 WBC Plt Count Sodium Potassium Chloride Carbon Dioxide Glucose POC Glucose 293 H 237 H 174 H Hemoglobin A1c AST ALT Lactate Dehydrogenase Total Protein Albumin Urine WBC (Auto) SARS-CoV-2 (PCR) 03/14/22 03/14/22 03/14/22 17:32 18:12 18:12 WBC 3.7 L Plt Count Sodium Potassium Chloride Carbon Dioxide Glucose POC Glucose 238 H Hemoglobin A1c 8.7 H AST ALT Lactate Dehydrogenase Total Protein Albumin Urine WBC (Auto) SARS-CoV-2 (PCR) 03/14/22 03/14/22 03/15/22 18:12 19:26 01:12 WBC Plt Count Sodium 133 L Potassium Chloride Carbon Dioxide 16 L Glucose 254 H POC Glucose 268 H 267 H Hemoglobin A1c AST 43 H ALT 65 H Lactate Dehydrogenase Total Protein 6.0 L Albumin 2.4 L Urine WBC (Auto) SARS-CoV-2 (PCR) 03/15/22 03/15/22 03/15/22 05:13 09:27 12:20 WBC Plt Count Sodium Potassium Chloride Carbon Dioxide Glucose POC Glucose 252 H 188 H 160 H Hemoglobin A1c AST ALT Lactate Dehydrogenase Total Protein Albumin Urine WBC (Auto) SARS-CoV-2 (PCR) 03/15/22 03/15/22 03/16/22 15:16 22:20 06:09 WBC Plt Count Sodium Potassium Chloride Carbon Dioxide Glucose POC Glucose 157 H 107 H 136 H Hemoglobin A1c AST ALT Lactate Dehydrogenase Total Protein Albumin Urine WBC (Auto) SARS-CoV-2 (PCR) 03/16/22 03/16/22 03/16/22 09:46 11:00 18:20 WBC Plt Count Sodium 136 L Potassium Chloride Carbon Dioxide 20 L Glucose 132 H POC Glucose 140 H 163 H Hemoglobin A1c AST 85 H ALT 78 H Lactate Dehydrogenase Total Protein Albumin 2.7 L Urine WBC (Auto) SARS-CoV-2 (PCR) 03/17/22 03/17/22 03/17/22 05:03 07:05 12:31 WBC Plt Count Sodium 133 L Potassium Chloride Carbon Dioxide 20 L Glucose 132 H POC Glucose 136 H 182 H Hemoglobin A1c AST 65 H ALT 71 H Lactate Dehydrogenase Total Protein 5.7 L Albumin 2.4 L Urine WBC (Auto) SARS-CoV-2 (PCR) 03/17/22 03/17/22 03/18/22 16:11 19:23 07:40 WBC Plt Count Sodium Potassium Chloride Carbon Dioxide Glucose POC Glucose 136 H 120 H Hemoglobin A1c AST 60 H ALT 66 H Lactate Dehydrogenase Total Protein Albumin Urine WBC (Auto) SARS-CoV-2 (PCR) 03/18/22 03/18/22 11:20 17:10 WBC Plt Count Sodium Potassium Chloride Carbon Dioxide Glucose POC Glucose 111 H Hemoglobin A1c AST ALT Lactate Dehydrogenase Total Protein Albumin Urine WBC (Auto) SARS-CoV-2 (PCR) Positive A Laboratory Results - last 24 hr 03/18/22 03/18/22 03/18/22 11:20 11:25 17:10 POC Glucose 103 111 H SARS-CoV-2 (PCR) Positive A 03/18/22 03/19/22 19:56 05:03 POC Glucose 98 103 SARS-CoV-2 (PCR)
[2022-03-19] MEDS: INSULIN REGULAR, HUMAN 100 UNITS/1 ML SUB-Q PRN (20:38)
--- NOTE | 2022-03-20 08:42 | Progress Note ---
Assessment and Plan - Patient Problems (1) Poorly controlled diabetes mellitus Current Visit: Yes Status: Acute Plan to address problem: Continue current management Plan for induction of labor between 35 and 36 weeks estimated gestational age (2) Polyhydramnios Current Visit: Yes Status: Acute Subjective - Subjective Date of service: 03/20/22 Principal diagnosis: IUP at 34w4, Poorly controlled Diabetes, Thrombocytopenia, Elevated LFTs, Interval history: Patient is 34 weeks and 5 days. She remains as inpatient status secondary to gestational diabetes and elevated liver function test. The patient has had improvement in her glucose levels as an inpatient and has had slight improvement in her liver function. Her platelets are within normal limits Patient reports: movement normal, other, no new complaints, no loss of fluid, no vaginal bleeding, no contractions Objective - Vital Signs Vital Signs: Vital Signs - 12hr 03/20/22 03/20/22 03/20/22 00:25 00:30 00:31 Temperature 99.1 F Pulse Rate 125 H 88 79 Blood Pressure 131/87 Blood Pressure 131/87 [Right] O2 Sat by Pulse 79 L 100 100 Oximetry 03/20/22 03/20/22 00:33 06:16 Temperature 98.9 F Pulse Rate 68 91 H Blood Pressure 122/72 Blood Pressure 122/72 [Right] O2 Sat by Pulse 85 99 Oximetry - Labs Labs: Abnormal Labs 03/12/22 03/12/22 03/12/22 17:50 17:50 17:50 WBC 3.6 L Plt Count 122 L Sodium Potassium Chloride Carbon Dioxide Glucose POC Glucose Hemoglobin A1c AST 73 H ALT 106 H Lactate Dehydrogenase 201 H Total Protein Albumin Urine WBC (Auto) 7.0 H SARS-CoV-2 (PCR) 03/13/22 03/13/22 03/13/22 00:00 04:23 04:23 WBC 3.7 L 4.1 L Plt Count 119 L 111 L Sodium 129 L Potassium 5.1 H Chloride 93.3 L Carbon Dioxide 14 L Glucose 373 H POC Glucose Hemoglobin A1c AST 59 H ALT 86 H Lactate Dehydrogenase Total Protein 5.9 L Albumin 2.6 L Urine WBC (Auto) SARS-CoV-2 (PCR) 03/13/22 03/13/22 03/13/22 13:00 15:38 23:37 WBC Plt Count Sodium Potassium Chloride Carbon Dioxide Glucose POC Glucose 250 H 232 H Hemoglobin A1c AST ALT Lactate Dehydrogenase Total Protein Albumin Urine WBC (Auto) SARS-CoV-2 (PCR) Positive A 03/14/22 03/14/22 03/14/22 06:07 12:59 15:42 WBC Plt Count Sodium Potassium Chloride Carbon Dioxide Glucose POC Glucose 293 H 237 H 174 H Hemoglobin A1c AST ALT Lactate Dehydrogenase Total Protein Albumin Urine WBC (Auto) SARS-CoV-2 (PCR) 03/14/22 03/14/22 03/14/22 17:32 18:12 18:12 WBC 3.7 L Plt Count Sodium Potassium Chloride Carbon Dioxide Glucose POC Glucose 238 H Hemoglobin A1c 8.7 H AST ALT Lactate Dehydrogenase Total Protein Albumin Urine WBC (Auto) SARS-CoV-2 (PCR) 03/14/22 03/14/22 03/15/22 18:12 19:26 01:12 WBC Plt Count Sodium 133 L Potassium Chloride Carbon Dioxide 16 L Glucose 254 H POC Glucose 268 H 267 H Hemoglobin A1c AST 43 H ALT 65 H Lactate Dehydrogenase Total Protein 6.0 L Albumin 2.4 L Urine WBC (Auto) SARS-CoV-2 (PCR) 03/15/22 03/15/22 03/15/22 05:13 09:27 12:20 WBC Plt Count Sodium Potassium Chloride Carbon Dioxide Glucose POC Glucose 252 H 188 H 160 H Hemoglobin A1c AST ALT Lactate Dehydrogenase Total Protein Albumin Urine WBC (Auto) SARS-CoV-2 (PCR) 03/15/22 03/15/22 03/16/22 15:16 22:20 06:09 WBC Plt Count Sodium Potassium Chloride Carbon Dioxide Glucose POC Glucose 157 H 107 H 136 H Hemoglobin A1c AST ALT Lactate Dehydrogenase Total Protein Albumin Urine WBC (Auto) SARS-CoV-2 (PCR) 03/16/22 03/16/22 03/16/22 09:46 11:00 18:20 WBC Plt Count Sodium 136 L Potassium Chloride Carbon Dioxide 20 L Glucose 132 H POC Glucose 140 H 163 H Hemoglobin A1c AST 85 H ALT 78 H Lactate Dehydrogenase Total Protein Albumin 2.7 L Urine WBC (Auto) SARS-CoV-2 (PCR) 03/17/22 03/17/22 03/17/22 05:03 07:05 12:31 WBC Plt Count Sodium 133 L Potassium Chloride Carbon Dioxide 20 L Glucose 132 H POC Glucose 136 H 182 H Hemoglobin A1c AST 65 H ALT 71 H Lactate Dehydrogenase Total Protein 5.7 L Albumin 2.4 L Urine WBC (Auto) SARS-CoV-2 (PCR) 03/17/22 03/17/22 03/18/22 16:11 19:23 07:40 WBC Plt Count Sodium Potassium Chloride Carbon Dioxide Glucose POC Glucose 136 H 120 H Hemoglobin A1c AST 60 H ALT 66 H Lactate Dehydrogenase Total Protein Albumin Urine WBC (Auto) SARS-CoV-2 (PCR) 03/18/22 03/18/22 03/19/22 11:20 17:10 13:17 WBC Plt Count Sodium Potassium Chloride Carbon Dioxide Glucose POC Glucose 111 H 62 L Hemoglobin A1c AST ALT Lactate Dehydrogenase Total Protein Albumin Urine WBC (Auto) SARS-CoV-2 (PCR) Positive A 03/19/22 03/19/22 03/20/22 16:21 20:16 06:14 WBC Plt Count Sodium Potassium Chloride Carbon Dioxide Glucose POC Glucose 144 H 151 H 109 H Hemoglobin A1c AST ALT Lactate Dehydrogenase Total Protein Albumin Urine WBC (Auto) SARS-CoV-2 (PCR) Laboratory Results - last 24 hr 03/19/22 03/19/22 03/19/22 13:17 16:21 20:16 POC Glucose 62 L 144 H 151 H 03/20/22 06:14 POC Glucose 109 H
[2022-03-20] MEDS: INSULIN REGULAR, HUMAN 100 UNITS/1 ML SUB-Q SCH ×2 (09:16→18:54)
[2022-03-20] MEDS: INSULIN NPH, HUMAN 100 UNIT/1 ML SUB-Q SCH ×2 (09:36→18:53)
--- NOTE | 2022-03-20 13:32 | Consultation ---
History of Present Illness Consult date: 03/20/22 Requesting physician: EDUARDO RAMOS History of present illness: Ms. Barbosa is a 22-year-old patient followed by our office due to leg edema, isolated episodes of elevated blood pressures and poorly controlled gestational diabetes hospitalized at [facility] due to asthma polyhydramnios and obesity. Most recent blood sugar values: 03/19/22 - 103/62/144/151 03/20/22 - 109/181 Most recent CBC: 03/16/2022: WBC 5.4 Hgb: 11.8 HCT: 36.2 PLT: 157 03/18/22 H/H at 10.8/34 and Plts at 167 Most recent LFTs 03/18/22 AST 60/ AST 66 - improved from 03/16/22 03/16/2022: AST: 85 ALT 78 (rising) 03/14/2022: AST 43, ALT: 65 03/13/2022: AST 59 ALT: 86 03/12/2022: AST 73 ALT: 106 Now 34 5/7 weeks BP 135/85 IMPRESSION: 1. IUP 34 5/ weeks 2. Poorly controlled diabetes - improved , likely exacerbated by BMZ, however, with improving values 3. Normal BPs, PIH unlikely, however, with elevated (improving) LFTs 4. BPP was reassuring 03/20 on 03/18/22 5. Covid + 6. Not in labor 7. Thrombocytopenia now resolved last Plts count at 167 RECOMMENDATIONS: 1. Monitor on standing insulin and cove elevated values with sliding scale 2. Repeat PIH labs due to elevated LFTs 3. D/C planning with stable BPs/Labs, Glucose control - may consider Discharge - would need negative Covid Test Prior to being seen at [facility] 4. F/U [facility] when Covid Negative ( Patient states second test still positive ) 5. Deliver at 35-36 weeks based on BS and BP control Past History Past Medical History: asthma, diabetes Past Surgical History: D&C [employer] History: chlamydia (treated with negative test of cure ), other (h/o ovarian cyst) Family/Genetic History: none - Obstetrical History : 2 Medications and Allergies Allergies Allergy/AdvReac Type Severity Reaction Status Date / Time No Known Allergies Allergy Unverified 03/04/22 18:02 Home Medications Medication Instructions Recorded Confirmed Last Taken Type Ibuprofen [Motrin] 600 mg PO Q8H PRN #20 tablet 12/08/19 Unknown Rx Metoclopramide [Reglan] 10 mg PO TID PRN #90 tab 03/01/22 Unknown Rx Ondansetron [Zofran ODT TAB] 8 mg PO Q12HR PRN #30 tab.rapdis 03/01/22 Unknown Rx Lactulose [Cephulac] 20 gm PO BID PRN #473 ml 03/04/22 Unknown Rx Active Meds: Active Medications Acetaminophen (Acetaminophen 325 Mg Tab) 650 mg PO Q4H PRN PRN Reason: Pain, Mild (1-3) Last Admin: 03/15/22 15:45 Dose: 650 mg Butorphanol Tartrate (Butorphanol 2 Mg/1 Ml Inj) 1 mg IV Q2H PRN PRN Reason: Pain, Moderate(4-6) LABOR PAIN Butorphanol Tartrate (Butorphanol 2 Mg/1 Ml Inj) 2 mg IV Q2H PRN PRN Reason: Pain , Severe (7-10) Dextrose (Dextrose 50% In Water (25gm) 50 Ml Syringe) 50 ml IV Q30MIN PRN; Protocol PRN Reason: Hypoglycemia Fentanyl (Fentanyl 100 Mcg/2 Ml Inj) 100 mcg IV Q2H PRN PRN Reason: Pain,Severe (7-10) LABOR PAIN Insulin Human NPH (Insulin Nph, Human 100 Unit/1 Ml) 39 unit SUB-Q QDDIAB [facility] Last Admin: 03/20/22 09:36 Dose: 39 unit Insulin Human NPH (Insulin Nph, Human 100 Unit/1 Ml) 14 unit SUB-Q QPMDIAB [facility] Last Admin: 03/19/22 17:56 Dose: 14 unit Insulin Human Regular (Insulin Regular, Human 100 Units/1 Ml) 19 units SUB-Q QDDIAB [facility] Last Admin: 03/20/22 09:16 Dose: 19 units Insulin Human Regular (Insulin Regular, Human 100 Units/1 Ml) 14 units SUB-Q QPMDIAB [facility] Last Admin: 03/19/22 17:53 Dose: 14 units Insulin Human Regular (Insulin Regular, Human 100 Units/1 Ml) 0 units SUB-Q Q6H PRN; Protocol PRN Reason: Hyperglycemia Last Admin: 03/19/22 20:38 Dose: 3 units - Vital Signs Vital signs: Vital Signs Pulse Pulse Ox 107 H 98 03/12/22 17:21 03/12/22 17:21 Temp Pulse Resp BP Pulse Ox 98.4 F 90 20 135/85 100 03/20/22 09:13 03/20/22 09:13 03/20/22 09:13 03/20/22 09:13 03/20/22 12:03 Results Result Diagrams: 03/18/22 07:40 03/17/22 07:05 Abnormal lab results 03/19/22 03/19/22 03/20/22 Range/Units 16:21 20:16 06:14 POC Glucose 144 H 151 H 109 H (70-105) mg/dL 03/20/22 Range/Units 11:54 POC Glucose 181 H (70-105) mg/dL All other labs normal.
[2022-03-20] MEDS: INSULIN REGULAR, HUMAN 100 UNITS/1 ML SUB-Q PRN ×2 (14:31→21:52)
[2022-03-20] MEDS ORDERED: CARBOPROST TROMETHAMINE 250 MCG/1 ML INJ IM PRN (18:39)
[2022-03-20] MEDS ORDERED: OXYTOCIN 10 UNIT/1 ML INJ IM PRN (18:39)
[2022-03-20] MEDS ORDERED: ePHEDrine SULFATE 50 MG/1 ML INJ IV PRN (18:39)
[2022-03-20] MEDS ORDERED: LIDOCAINE (2%) 20 MG/1 ML VIAL 20 ML MDV INFILTRATI ONE (18:39)
[2022-03-20] MEDS ORDERED: LOPERAMIDE 2 MG CAP PO PRN (18:39)
[2022-03-20] MEDS ORDERED: TERBUTALINE 1 MG/1 ML INJ SUB-Q PRN (18:39)
[2022-03-20] MEDS ORDERED: MINERAL OIL 30 ML ORAL LIQD PO PRN (18:39)
[2022-03-20] MEDS ORDERED: miSOPROStol 200 MCG TAB PR PRN (18:39)
[2022-03-20] MEDS ORDERED: METHYLERGONOVINE MALEATE 0.2 MG/ML VIAL IM PRN (18:39)
[2022-03-20] MEDS ORDERED: OXYTOCIN DRIP 30 UNITS/500 ML BAG IV SCH ×2 (19:00)
[2022-03-20] MEDS ORDERED: AMPICILLIN/NS 2 GM/100 ML 2 GM/100 ML BAG IV ONE (19:00)
[2022-03-20] MEDS: LACTATED RINGERS 1,000 ML IV SCH (20:46)
[2022-03-21] MEDS: AMPICILLIN/NS 1 GM/50 ML 1 GM/50 ML BAG IV SCH ×2 (00:49→04:50)
[2022-03-21] MEDS ORDERED: ONDANSETRON 4 MG/2 ML INJ IV PRN ×2 (03:00→14:05)
[2022-03-21] MEDS: LACTATED RINGERS 1,000 ML IV SCH (04:56)
--- NOTE | 2022-03-21 06:45 | Progress Note ---
Assessment and Plan - Patient Problems (1) Poorly controlled diabetes mellitus Current Visit: Yes Status: Acute (2) Polyhydramnios Current Visit: Yes Status: Acute (3) premature rupture of membranes Current Visit: Yes Status: Acute Plan to address problem: ampicillin and pitocin initiated Subjective - Subjective Date of service: 03/21/22 Principal diagnosis: IUP at 34w6, Poorly controlled Diabetes, Thrombocytopenia, Elevated LFTs, Interval history: Patient is 34 weeks and 6 days. Patient reported to nursing of amniotic fluid leakage yesterday. ROM+ performed was positive. monitoring with intermittent contractions. Denies any vaginal bleeding. Pitocin augmentation initiated last night. Currently 3cm Patient reports: new complaints, loss of fluid, movement normal, contractions, no vaginal bleeding Objective - Vital Signs Vital Signs: Vital Signs - 12hr 03/20/22 03/20/22 03/21/22 21:13 21:16 03:39 Temperature 98.7 F Pulse Rate 96 H Respiratory 18 Rate Blood Pressure O2 Sat by Pulse 99 Oximetry O2 Sat by Pulse 100 Oximetry [ Bilateral] 03/21/22 03/21/22 03/21/22 03:44 03:49 03:54 Temperature Pulse Rate 97 H 104 H 100 H Respiratory Rate Blood Pressure O2 Sat by Pulse 99 99 99 Oximetry O2 Sat by Pulse Oximetry [ Bilateral] 03/21/22 03/21/22 03/21/22 03:59 04:04 04:09 Temperature Pulse Rate 100 H 109 H 94 H Respiratory Rate Blood Pressure O2 Sat by Pulse 98 99 99 Oximetry O2 Sat by Pulse Oximetry [ Bilateral] 03/21/22 03/21/22 03/21/22 04:14 04:19 04:24 Temperature Pulse Rate 108 H 102 H 115 H Respiratory Rate Blood Pressure O2 Sat by Pulse 99 99 98 Oximetry O2 Sat by Pulse Oximetry [ Bilateral] 03/21/22 03/21/22 03/21/22 04:29 04:34 04:39 Temperature Pulse Rate 110 H 107 H 107 H Respiratory Rate Blood Pressure O2 Sat by Pulse 99 99 98 Oximetry O2 Sat by Pulse Oximetry [ Bilateral] 03/21/22 03/21/22 03/21/22 04:44 04:49 04:54 Temperature Pulse Rate 116 H 94 H 101 H Respiratory Rate Blood Pressure O2 Sat by Pulse 99 99 99 Oximetry O2 Sat by Pulse Oximetry [ Bilateral] 03/21/22 03/21/22 03/21/22 04:59 05:04 05:09 Temperature Pulse Rate 93 H 111 H 98 H Respiratory Rate Blood Pressure O2 Sat by Pulse 97 99 98 Oximetry O2 Sat by Pulse Oximetry [ Bilateral] 03/21/22 03/21/22 03/21/22 05:14 05:19 05:24 Temperature Pulse Rate 113 H 105 H 106 H Respiratory Rate Blood Pressure O2 Sat by Pulse 98 99 99 Oximetry O2 Sat by Pulse Oximetry [ Bilateral] 03/21/22 03/21/22 03/21/22 05:29 05:34 05:39 Temperature Pulse Rate 108 H 117 H 112 H Respiratory Rate Blood Pressure O2 Sat by Pulse 99 99 98 Oximetry O2 Sat by Pulse Oximetry [ Bilateral] 03/21/22 03/21/22 03/21/22 05:44 05:49 05:54 Temperature Pulse Rate 105 H 95 H 98 H Respiratory Rate Blood Pressure O2 Sat by Pulse 99 98 98 Oximetry O2 Sat by Pulse Oximetry [ Bilateral] 03/21/22 03/21/22 03/21/22 05:59 06:04 06:09 Temperature Pulse Rate 92 H 101 H 98 H Respiratory Rate Blood Pressure O2 Sat by Pulse 98 98 100 Oximetry O2 Sat by Pulse Oximetry [ Bilateral] 03/21/22 03/21/22 03/21/22 06:14 06:19 06:22 Temperature Pulse Rate 96 H 100 H 103 H Respiratory Rate Blood Pressure O2 Sat by Pulse 96 99 90 Oximetry O2 Sat by Pulse Oximetry [ Bilateral] 03/21/22 03/21/22 03/21/22 06:24 06:25 06:29 Temperature Pulse Rate 105 H 99 H 109 H Respiratory Rate Blood Pressure 138/79 O2 Sat by Pulse 96 99 Oximetry O2 Sat by Pulse Oximetry [ Bilateral] 03/21/22 03/21/22 03/21/22 06:30 06:34 06:35 Temperature Pulse Rate 100 H 102 H 104 H Respiratory Rate Blood Pressure 135/80 135/68 O2 Sat by Pulse 100 Oximetry O2 Sat by Pulse Oximetry [ Bilateral] 03/21/22 03/21/22 06:39 06:40 Temperature Pulse Rate 110 H 109 H Respiratory Rate Blood Pressure 138/72 O2 Sat by Pulse 99 Oximetry O2 Sat by Pulse Oximetry [ Bilateral] - Labs Labs: Abnormal Labs 03/12/22 03/12/22 03/12/22 17:50 17:50 17:50 WBC 3.6 L Plt Count 122 L Sodium Potassium Chloride Carbon Dioxide Glucose POC Glucose Hemoglobin A1c AST 73 H ALT 106 H Lactate Dehydrogenase 201 H Total Protein Albumin Urine WBC (Auto) 7.0 H Membranes Rupture SARS-CoV-2 (PCR) 03/13/22 03/13/22 03/13/22 00:00 04:23 04:23 WBC 3.7 L 4.1 L Plt Count 119 L 111 L Sodium 129 L Potassium 5.1 H Chloride 93.3 L Carbon Dioxide 14 L Glucose 373 H POC Glucose Hemoglobin A1c AST 59 H ALT 86 H Lactate Dehydrogenase Total Protein 5.9 L Albumin 2.6 L Urine WBC (Auto) Membranes Rupture SARS-CoV-2 (PCR) 03/13/22 03/13/22 03/13/22 13:00 15:38 23:37 WBC Plt Count Sodium Potassium Chloride Carbon Dioxide Glucose POC Glucose 250 H 232 H Hemoglobin A1c AST ALT Lactate Dehydrogenase Total Protein Albumin Urine WBC (Auto) Membranes Rupture SARS-CoV-2 (PCR) Positive A 03/14/22 03/14/22 03/14/22 06:07 12:59 15:42 WBC Plt Count Sodium Potassium Chloride Carbon Dioxide Glucose POC Glucose 293 H 237 H 174 H Hemoglobin A1c AST ALT Lactate Dehydrogenase Total Protein Albumin Urine WBC (Auto) Membranes Rupture SARS-CoV-2 (PCR) 03/14/22 03/14/22 03/14/22 17:32 18:12 18:12 WBC 3.7 L Plt Count Sodium Potassium Chloride Carbon Dioxide Glucose POC Glucose 238 H Hemoglobin A1c 8.7 H AST ALT Lactate Dehydrogenase Total Protein Albumin Urine WBC (Auto) Membranes Rupture SARS-CoV-2 (PCR) 03/14/22 03/14/22 03/15/22 18:12 19:26 01:12 WBC Plt Count Sodium 133 L Potassium Chloride Carbon Dioxide 16 L Glucose 254 H POC Glucose 268 H 267 H Hemoglobin A1c AST 43 H ALT 65 H Lactate Dehydrogenase Total Protein 6.0 L Albumin 2.4 L Urine WBC (Auto) Membranes Rupture SARS-CoV-2 (PCR) 03/15/22 03/15/22 03/15/22 05:13 09:27 12:20 WBC Plt Count Sodium Potassium Chloride Carbon Dioxide Glucose POC Glucose 252 H 188 H 160 H Hemoglobin A1c AST ALT Lactate Dehydrogenase Total Protein Albumin Urine WBC (Auto) Membranes Rupture SARS-CoV-2 (PCR) 03/15/22 03/15/22 03/16/22 15:16 22:20 06:09 WBC Plt Count Sodium Potassium Chloride Carbon Dioxide Glucose POC Glucose 157 H 107 H 136 H Hemoglobin A1c AST ALT Lactate Dehydrogenase Total Protein Albumin Urine WBC (Auto) Membranes Rupture SARS-CoV-2 (PCR) 03/16/22 03/16/22 03/16/22 09:46 11:00 18:20 WBC Plt Count Sodium 136 L Potassium Chloride Carbon Dioxide 20 L Glucose 132 H POC Glucose 140 H 163 H Hemoglobin A1c AST 85 H ALT 78 H Lactate Dehydrogenase Total Protein Albumin 2.7 L Urine WBC (Auto) Membranes Rupture SARS-CoV-2 (PCR) 03/17/22 03/17/22 03/17/22 05:03 07:05 12:31 WBC Plt Count Sodium 133 L Potassium Chloride Carbon Dioxide 20 L Glucose 132 H POC Glucose 136 H 182 H Hemoglobin A1c AST 65 H ALT 71 H Lactate Dehydrogenase Total Protein 5.7 L Albumin 2.4 L Urine WBC (Auto) Membranes Rupture SARS-CoV-2 (PCR) 03/17/22 03/17/22 03/18/22 16:11 19:23 07:40 WBC Plt Count Sodium Potassium Chloride Carbon Dioxide Glucose POC Glucose 136 H 120 H Hemoglobin A1c AST 60 H ALT 66 H Lactate Dehydrogenase Total Protein Albumin Urine WBC (Auto) Membranes Rupture SARS-CoV-2 (PCR) 03/18/22 03/18/22 03/19/22 11:20 17:10 13:17 WBC Plt Count Sodium Potassium Chloride Carbon Dioxide Glucose POC Glucose 111 H 62 L Hemoglobin A1c AST ALT Lactate Dehydrogenase Total Protein Albumin Urine WBC (Auto) Membranes Rupture SARS-CoV-2 (PCR) Positive A 03/19/22 03/19/22 03/20/22 16:21 20:16 06:14 WBC Plt Count Sodium Potassium Chloride Carbon Dioxide Glucose POC Glucose 144 H 151 H 109 H Hemoglobin A1c AST ALT Lactate Dehydrogenase Total Protein Albumin Urine WBC (Auto) Membranes Rupture SARS-CoV-2 (PCR) 03/20/22 03/20/22 03/20/22 11:54 16:08 20:59 WBC Plt Count Sodium Potassium Chloride Carbon Dioxide Glucose POC Glucose 181 H 151 H 157 H Hemoglobin A1c AST ALT Lactate Dehydrogenase Total Protein Albumin Urine WBC (Auto) Membranes Rupture SARS-CoV-2 (PCR) 03/20/22 03/21/22 Unknown 06:02 WBC Plt Count Sodium Potassium Chloride Carbon Dioxide Glucose POC Glucose 132 H Hemoglobin A1c AST ALT Lactate Dehydrogenase Total Protein Albumin Urine WBC (Auto) Membranes Rupture Positive A SARS-CoV-2 (PCR) Laboratory Results - last 24 hr 03/20/22 03/20/22 03/20/22 11:54 16:08 20:59 POC Glucose 181 H 151 H 157 H Membranes Rupture 03/20/22 03/21/22 Unknown 06:02 POC Glucose 132 H Membranes Rupture Positive A
--- NOTE | 2022-03-21 07:24 | Anesthesia Consultation ---
Anesthesia Consult and Med Hx Date of service: 03/21/22 - Airway Anesthetic Teeth Evaluation: Good ROM Head & Neck: Adequate Mental/Hyoid Distance: Adequate Mallampati Class: Class II Intubation Access Assessment: Probably Good - Pulmonary Exam CTA: Yes - Cardiac Exam Cardiac Exam: RRR - Pre-Operative Health Status ASA Pre-Surgery Classification: ASA3 Proposed Anesthetic Plan: Epidural - Pulmonary Hx Smoking: No Hx Asthma: Yes (inhaler used today) COPD: No Hx Pneumonia: No - Cardiovascular System Hx Hypertension: No - Central Nervous System Hx Seizures: No CVA: No Hx Psychiatric Problems: No - Endocrine Hx Renal Disease: No Hx End Stage Renal Disease: No Hx Liver Disease: No Hx Insulin Dependent Diabetes: Yes Hx Hypothyroidism: No Hx Hyperthyroidism: No - Hematic Hx Anemia: No Hx Sickle Cell Disease: No - Other Systems Hx Alcohol Use: No Hx Substance Use: No Hx Cancer: No - Additional Comments Anesthesia Medical History Comments: no hx of anesthetic complications
--- NOTE | 2022-03-21 07:26 | Progress Note ---
Labor Epidural - Labor Epidural Start Time: 06:29 Stop Time: 06:58 Performed by:: WING THOMAS Procedure: Patient is requesting epidural for labor and pain. H&P, labs were reviewed. Patient IDed, all questions and concerns were answered, and consent was signed. Timeout was performed at bedside. Patient in sitting position. Sterile prep and drape was performed. 3ml of 1% lidocaine skin wheal at L[3]- L [4]. 17- gauge Tuohy epidural needle was advanced to loss of resistance with air technique 7 cm. Negative CSF negative blood. Epidural catheter advanced to [14] centimeters. [negative] Aspiration [negative] test dose. Sterile dressing applied. Patient tolerated procedure.
[2022-03-21] MEDS ORDERED: fentaNYL-BUPIV 2 MCG/ML-0.125% 200 MCG/100 ML BAG EPIDURAL SCH (08:00)
[2022-03-21] MEDS ORDERED: ePHEDrine SULFATE 50 MG/1 ML INJ IV PRN (08:00)
[2022-03-21] MEDS ORDERED: NALOXONE 0.4 MG/1 ML INJ IV PRN (08:00)
[2022-03-21] MEDS ORDERED: MAGNESIUM HYDROXIDE (MOM) ORAL LIQD UDC PO PRN (14:05)
[2022-03-21] MEDS ORDERED: diphenhydrAMINE 25 MG CAP PO PRN (14:05)
[2022-03-21] MEDS ORDERED: ACETAMINOPHEN 325 MG TAB PO PRN (14:05)
[2022-03-21] MEDS ORDERED: PROMETHAZINE 25 MG RECT SUPP PR PRN (14:05)
[2022-03-21] MEDS ORDERED: PROMETHAZINE 25 MG TAB PO PRN (14:05)
[2022-03-21] MEDS ORDERED: WITCH HAZEL/ GLYCERIN PAD TP PRN (14:05)
[2022-03-21] MEDS ORDERED: HYDROcodone/ACETAMINOPHEN 5-325 MG TAB PO PRN (14:05)
[2022-03-21] MEDS ORDERED: LANOLIN/ZINC/DIMETHICONE (LANSINOH) 7 GM TP PRN (14:05)
[2022-03-21] MEDS: IBUPROFEN 800 MG TAB PO SCH ×2 (15:45→22:56)
[2022-03-21] MEDS: metFORMIN 500 MG TAB PO SCH (17:08)
[2022-03-21 23:51] LABS: Hematocrit 30.8 % (30.3-42.9); Hemoglobin 9.8 gm/dl (10.1-14.3); Mean Corpuscular HGB Conc 32 % (30-34); Mean Corpuscular Volume 92 fl (79-97); Platelet Count 180 K/mm3 (140-440); Red Blood Count 3.34 M/mm3 (3.65-5.03); Red Cell Distribution Width 17.1 % (13.2-15.2)
--- NOTE | 2022-03-22 03:02 | Procedure Note ---
OB Delivery Note - Delivery Date of Delivery: 03/21/22 Surgeon: HASMUKH CASTELLANOS Estimated blood loss: 300cc - Vaginal Delivery presentation: vertex Delivery position: OA Intrapartum events: labor-<37 weeks Delivery monitor: external FHT, external uterine Route of delivery: Delivery placenta: spontaneous Delivery cord: nuchal cord Delivery laceration: 1st degree Anesthesia: epidural - Infant A at 1 minute: 1 at 5 minutes: 5 ( at 10 minutes 7; weight 3.75kg) Infant Gender: Female
[2022-03-22] MEDS: IBUPROFEN 800 MG TAB PO SCH ×3 (06:16→17:28)
[2022-03-22] MEDS: metFORMIN 500 MG TAB PO SCH ×2 (08:06→17:28)
--- NOTE | 2022-03-22 08:40 | Discharge Summary ---
Providers - Providers Date of Admission: 03/12/22 22:53 Date of discharge: 03/23/22 Attending physician: HASMUKH CASTELLANOS 03/13/22 09:16 Consult to Physician [CONS] Routine Comment: Consulting Provider: LINDY COLEMAN I Physician Instructions: Reason For Exam: IUP at 33 wks, poorly diabetes, edema Primary care physician: EDUARDO RAMOS Hospitalization Reason for admission: other (Uncontrolled DM) Delivery: Episiotomy: none Laceration: 1st degree (healing as expected) Other procedures: none complications: none Discharge diagnosis: IUP at term delivered baby: female Hospital course: Pt is a 22 year old -[place] female who initially presented secondary to leg swelling, right greater than left. She was noted to have two BPs with systolics greater than 140 since admission. She collected a 24 hour urine at home, and returned it today. She reports decreased movement and irregular contractions, but denies vaginal bleeding or leakage of fluid. She has had care at [facility] with comanagement by [facility] since transfer into care at 11 wks complicated by pregestational diabetes previously on Metformin 500 mg BID, asthma, polyhydramnios, chlamydia treated with negative test of cure, obesity, and GBS positive status. She received one dose of betamethasone for lung maturity after admission. PIH panel was ordered in the office on 03/07/22: H/H 12.3/38.1, Plt 180,000;Glucose 287; AST/ALT 72/145. Followed by MFM specialist, IOL recommended, delivered viable female via . Condition at discharge: Stable Disposition: 01 HOME / SELF CARE / HOMELESS - Discharge Diagnoses (1) Poorly controlled diabetes mellitus Status: Acute (2) Status post normal vaginal delivery Status: Acute (3) Anemia Status: Acute Qualifiers: Anemia type: iron deficiency Comment: Asymptomatic Plan - Discharge Medications Prescriptions: Ibuprofen [Motrin 800 MG tab] 800 mg PO Q8HR #30 tablet - Provider Discharge Summary Activity: routine, no sex for 6 weeks, no heavy lifting 4 weeks, no strenuous exercise Diet: other (Iron rich diet) Instructions: routine Additional instructions: [] Smoking cessation referral if applicable(refer to patient education folder for contact #) [] Refer to [facility] Booklet Call your doctor immediately for: * Fever > 100.5 * Heavy vaginal bleeding ( >1 pad per hour) * Severe persistent headache * Shortness of breath * Reddened, hot, painful area to leg or breast * Drainage or odor from incision. * Keep laceration clean and dry at all times and follow doctor's instructions regarding bathing/showering - Follow up plan Follow up: EDUARDO RAMOS MD [Primary Care Provider] - 7 Days
--- NOTE | 2022-03-22 20:05 | Event Note ---
Date: 03/22/22 On-call physician notified by patient's nurse that she would like to go home tonight "because she cannot see her baby". Patient's glucose and blood pressure are noted to be within acceptable range. The patient may follow-up in the office 14 days after her positive test or sooner with a negative COVID test.
[2022-03-22 20:12] VITALS: BP 124/82
== END 2022-03-22 20:25 | disposition home or self-care (01) | DRG 774 ==
LOC: TRG 16:52 → APU 16:52 → TRG 22:52 → LD 22:53 → OB 03-21 16:14
PROVIDERS: ADMIT Obstetrics & Gynecology; ATTEND Obstetrics & Gynecology
PROC: 10E0XZZ Delivery of Products of Conception, External Approach (ICD-10-PCS; principal; 2022-03-22)
PROC: 3E0R3BZ Introduction of Anesthetic Agent into Spinal Canal, Percutaneous Approach (ICD-10-PCS; 2022-03-22)
PROC: 00HU33Z Insertion of Infusion Device into Spinal Canal, Percutaneous Approach (ICD-10-PCS; 2022-03-22)
DX: O60.14X0 Preterm labor third trimester with preterm delivery third trimester, not applicable or unspecified (principal); O24.12 Pre-existing type 2 diabetes mellitus, in childbirth; U07.1 COVID-19; O99.12 Other diseases of the blood and blood-forming organs and certain disorders involving the immune mechanism complicating childbirth; O70.0 First degree perineal laceration during delivery; Z37.0 Single live birth; Z3A.33 33 weeks gestation of pregnancy; O99.824 Streptococcus B carrier state complicating childbirth; D69.6 Thrombocytopenia, unspecified; O40.3XX0 Polyhydramnios, third trimester, not applicable or unspecified; O99.214 Obesity complicating childbirth; O99.52 Diseases of the respiratory system complicating childbirth; O98.52 Other viral diseases complicating childbirth; Z91.19 Patient's noncompliance with other medical treatment and regimen; O69.81X0 Labor and delivery complicated by cord around neck, without compression, not applicable or unspecified; O42.013 Preterm premature rupture of membranes, onset of labor within 24 hours of rupture, third trimester; O13.4 Gestational [pregnancy-induced] hypertension without significant proteinuria, complicating childbirth
CPT/HCPCS: 36415; 76816; 76819; 80053; 81001; 82565; 82962; 83036; 83615; 84112; 84156; 84450; 84460; 84550; 85027; 86592; 86850; 86900; 86901; G0378; J2354; J3490; Q9967; J0290; J0595; J0702; J1815; J2590; J7120; U0003